=== PATIENT | male | born 1980 | race Caucasian/White ===

== ENCOUNTER 2016-03-08 10:52 | Emergency (ER) | payer OTHER ==
[~2016-03-08] VITALS: Ht 165.1 cm; Wt 104.3 kg
[~2016-03-08 10:52] MED LIST: ABILIFY5 M1 PO; AMITRIPTYLINE100 M2 PO; AMITRIPTYLINE50 MG PO; AMOXICILLIN500 M3 PO; ATORVASTATIN CA10 MG PO; BACTRIM DS TAB1 EACH PO; BENTYL10 M1 PO; CARAFATE1 GM/10 ML PO; CLEOCIN HCL300 MG PO; CLONAZEPAM0.5 M2 PO; CLONAZEPAM1 M2 PO; CYMBALTA30 M1 PO; HCTZ/LISINOPRIL1 TA1 PO; HYDROCHLOROTH12.5 M2 PO; HYDROCODONE BI120 M1 PO; LOVENOX 4040 MG/0.4 SC; NATURAL IRON65 MG PO; ONE DAILY MULT1 EAC2 PO; OXYCODONE5 M1 PO; PERCOCET 5-3251 EACH PO; PREDNISOLO15 MG/5 M1 OD; PREDNISOLO15 MG/5 M1 OP; PROAIR HFA8.5 GM INH; PROTONIX40 M3 PO; VITAMIN D31000 UNI2 PO
[2016-03-08 11:01] VITALS: BP 136/84
[2016-03-08] MEDS ORDERED: BUPROPION XL300 M1 PO (11:38)
[2016-03-08] MEDS ORDERED: DEPLIN-ALGAL O1 EAC1 PO (11:39)
--- NOTE | 2016-03-08 11:46 | ED GENERAL ADULT ---
History of Present Illness General Chief Complaint: Fever Stated Complaint: FEVER, CHILLS SINCE THIS AM Source: patient Exam Limitations: no limitations Vital Signs & Intake/Output Vital Signs & Intake/Output Vital Signs Date Time Temp Pulse Resp B/P Pulse O2 O2 Flow FiO2 Ox Delivery Rate 03/08 1326 98.7 03/08 1101 97.8 99 20 136/84 98 Room Air Allergies Coded Allergies: NO KNOWN ALLERGIES (08/19/14) Reconcile Medications Albuterol Sulfate (Proair Hfa) 0.09 MG/Actuation CAREY 2 PUFF INH PRN ASTHMA ( Reported) AMITRIPTYLINE HCL (Amitriptyline HCl) 100 MG TAB 1 TAB PO QPM SLEEP/DEPRESSION (Reported) Amoxicillin 500 MG TABLET 1 TAB PO TID abscess Aripiprazole (Abilify) 5 MG TABLET 1 TAB PO DAILY SLEEP (Reported) Bupropion HCl (Bupropion XL) 300 MG TAB.ER.24H 1 TAB PO QAM DEPRESSION ( Reported) Cholecalciferol (Vitamin D3) 1,000 UNIT TABLET 1 TAB PO DAILY SUPPLEMENT ( Reported) Clonazepam 1 MG TABLET 1 TAB PO BID ANXIETY (Reported) Clonazepam 0.5 MG TABLET 1 TAB PO DAILY ANXIETY (Reported) Dicyclomine Hydrochloride (Bentyl 10 MG Capsule) 10 MG CAPSULE 1 CAP PO TID IBS (Reported) Duloxetine Hydrochloride (Cymbalta) 30 MG CAPSULE.DR 1 CAP PO DAILY DEPRESSION (Reported) FERROUS SULFATE (IRON) (Unknown Strength) TAB (Unknown Dose) PO DAILY SUPPLEMENT (Reported) Hydrochlorothiazide (Hydrodiuril 12.5 MG Tab) 12.5 MG HTAB 1 CAP PO DAILY DIURETIC (Reported) L-Methylfolate (Deplin-Algal Oil 15 MG Capsule) 15 MG-90.314 MG CAPSULE 1 CAP PO DAILY UNKNOWN (Reported) Multivitamin (One Daily Multivitamin) 1 TAB TAB 1 TAB PO DAILY SUPPLEMENT ( Reported) Oxycodone HCl/Acetaminophen (Percocet 5-325 MG Tablet) 5 MG-325 MG TABLET 1 TAB PO TID PRN PAIN Pantoprazole Sodium (Protonix) 40 MG TABLET.DR 1 TAB PO DAILY ACID REFLUX ( Reported) Prednisolone 15 MG/5 ML SOLUTION 1 DROP OD DAILY CORNEA TRANSPLANT (Reported) Sulfamethoxazole/Trimethoprim (Bactrim Ds Tablet) 800 MG-160 MG TABLET 1 TAB PO BID abscess Triage Note: PT TO ED C/O "MRSA INFECTION" TO RIGHT BUTTOCKS. WAS TOLD TO COME BACK TO ED FOR FEVER AND CHILLS. PT STATES HE HAD A FEVER AT HOME OF 101.3, TEMP IN TRIAGE 97.6. PT SEEN IN ED X 2 RECENTLY FOR MRSA INFECTION. Triage Nurses Notes Reviewed? yes Onset: Gradual Duration: day(s): (1) Timing: no prior history Injury Environment: home Severity: moderate Severity Numbers: 6 No Modifying Factors: none HPI: Patient is a 35-year-old male presenting to the emergency department with chief complaint of aches, pains, fevers up to 11.5 that started this morning. Patient reports that he is on 2 different antibiotics over the past 4 days for an abscess that was drained on his right outer leg. He reports that the pain is still present in the right lateral leg. Has an appointment at the end of the month with a surgeon. Denies any chest pain palpitations or shortness of breath. No nausea or vomiting. Positive frontal headache. Denies taking anything help with his fevers. (CAN RANDOLPH) Past History Travel History Traveled to [place] past 21 day No Medical History Any Pertinent Medical History? 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 No (CAN RANDOLPH) Review of Systems Review of Systems Constitutional: Reports: chills, fever, malaise. Comments Review of systems: See HPI, All other systems negative. Constitutional, no weight loss HEENT: No visual changes no sore throat no congestion Cardiovascular: No chest pain ,palpitation , orthopnea or ankle swelling Skin, no jaundice Respiratory: No dyspnea cough sputum or hemoptysis GI: No nausea no vomiting : No dysuria No hematuria Muscle skeletal: no back pain, no neck pain, Neurologic: No numbness no confusion Psych: No stress anxiety or depression,. Heme/endocrine: No bruising no bleeding no polyuria or polydipsia Immunology: No splenectomy or history of AIDS (CAN RANDOLPH) Physical Exam Physical Exam General Appearance: well developed/nourished, no apparent distress, alert, awake , comfortable Comments: Well-developed well-nourished person in no acute distress HEENT: Pupils equally round and reactive to light and accommodation. Nose is atraumatic. External auditory canal and Tympanic membranes clear. Pharynx normal. No swelling or edema. Neck: Supple, no lymphadenopathy, normal range of motion without pain or tenderness Back: Nontender, no CVA tenderness. Full range of motion Cardiovascular: Regular rate and rhythms no murmurs rubs or gallops, normal JVP Respiratory: Chest nontender. No respiratory distress.breath sounds clear to auscultation bilaterally Abdomen: Soft nontender, no rebound or guarding. Bowel sounds intact in all 4 quadrants. Extremity: No edema Neuro: Alert oriented x3 Skin: Healing abscess over the right lateral gluteus carmelo, firm, no fluctuance. Scab present in the central area. No surrounding erythema. Psych: Mood and affect is normal, memory and judgment is normal. Core Measures ACS in differential dx? No CVA/TIA Diagnosis: No Severe Sepsis Present: No Septic Shock Present: No (CAN RANDOLPH) Progress Differential Diagnoses I considered the following diagnoses in my evaluation of the patient: Failed outpatient treatment, sepsis, viral syndrome, abscess Plan of Care: Orders Procedure Date/time Status RAPID VIRAL INFLUENZA A 03/08 1151 Complete COMPREHENSIVE METABOLIC PANEL 03/08 1145 Complete CBC WITHOUT DIFFERENTIAL 03/08 1145 Complete Laboratory Tests 03/08/16 1222: Anion Gap 12, Estimated GFR > 60, BUN/Creatinine Ratio 10.0, Glucose 98, Calcium 9.1, Total Bilirubin 0.8, AST 24, ALT 28, Alkaline Phosphatase 108, Total Protein 7.7, Albumin 4.4, Globulin 3.3, Albumin/Globulin Ratio 1.3, CBC w Diff NO MAN DIFF REQ, RBC 4.68 L, MCV 85.8, MCH 29.7, RDW 13.4, MPV 7.2 L, Gran % 91.8 H, Lymphocytes % 4.1 L, Monocytes % 3.5, Eosinophils % 0.6, Basophils % 0 L, Absolute Granulocytes 6.2, Absolute Lymphocytes 0.3 L, Absolute Monocytes 0.2, Absolute Eosinophils 0, Absolute Basophils 0, PUBS MCHC 34.6 Initial ED EKG: none Comments: Patient given oxycodone for pain in the emergency department. Patient is afebrile here. No elevation in white blood cell count. Abscess appears to be healing well. This was negative. Likely either viral process on top of abscess. He was given another surgeon follow-up with as his appointment isn't for 3 weeks. (CAN RANDOLPH) Departure Departure Time of Disposition: 1302 Disposition: HOME OR SELF CARE Condition: Stable Clinical Impression Primary Impression: Abscess Referrals: EB LAMB MD (PCP/Family) ALISSA RODRIGUEZ MD Referred to [facility] as new patient No Additional Instructions: Follow-up with your primary care physician as well as surgeon they have scheduled. Return for worsening symptoms or concerns. Continue antibiotics. Continue pain medication as prescribed. Apply a warm compress to affected area. Departure Forms: Customer Survey General Discharge Information (CAN RANDOLPH) PA/MENTAL HEALTH ASSOCIATE Co-Sign Statement Statement: ED Attending supervision documentation- [] I saw and evaluated the patient. I have also reviewed all the pertinent lab results and diagnostic results. I agree with the findings and the plan of care as documented in the PA's/MENTAL HEALTH ASSOCIATE's documentation. [X] I have reviewed the ED Record and agree with the PA's/MENTAL HEALTH ASSOCIATE's documentation. [] Additions or exceptions (if any) to the PAs/MENTAL HEALTH ASSOCIATE's note and plan are summarized below: [] (LEBRON GUY DO) Critical Care Note Critical Care Note Critical Care Time: non-applicable (CAN RANDOLPH)
[2016-03-08 12:30] LABS: ABSOLUTE BASOPHIL COUNT 0 /CUMM (0.0-0.2); ABSOLUTE EOSINOPHIL COUNT 0 /CUMM (0.0-0.7); ABSOLUTE GRANULOCYTE CT 6.2 /CUMM (1.4-6.5); ABSOLUTE LYMPH COUNT 0.3 /CUMM (1.2-3.4); ABSOLUTE MONOCYTE COUNT 0.2 /CUMM (0.10-0.60); BASOPHIL % 0 % (0.0-2.0); EOSINOPHIL % 0.6 % (0-5); GRANULOCYTE % 91.8 % (42.2-75.2); HEMATOCRIT 40.1 % (42-52); MEAN CORPUSCULAR HGB 29.7 PG (27.0-31.0); MEAN CORPUSCULAR HGB CONC 34.6 G/DL (33.0-37.0); MEAN CORPUSCULAR VOLUME 85.8 FL (80.0-94.0); MEAN PLATELET VOLUME 7.2 FL (7.4-10.4); PLATELET COUNT 245 /CUMM (130-400); RBC DISTRIBUTION WIDTH 13.4 % (11.5-14.5); RED BLOOD CELL CT 4.68 /CUMM (4.70-6.10); WHITE BLOOD CELL COUNT 6.7 /CUMM (4.8-10.8)
== END 2016-03-08 13:27 ==
LOC: ERH 10:52
PROVIDERS: Physician Assistant
DX: L02.31 Cutaneous abscess of buttock (principal)
CPT/HCPCS: 87804; 87804-59

== ENCOUNTER 2016-04-02 09:14 | Emergency (ER) | payer OTHER ==
[~2016-04-02] VITALS: Ht 165.1 cm; Wt 102.1 kg
[~2016-04-02 09:14] MED LIST changes: +BUPROPION XL300 M1 PO; +DEPLIN-ALGAL O1 EAC1 PO
[2016-04-02] MEDS ORDERED: VICODIN 5-3001 EACH PO (11:14)
[2016-04-02] MEDS ORDERED: AMOXICILLIN500 M3 PO (11:14)
[2016-04-02] MEDS ORDERED: BACTRIM DS TAB1 EACH PO (11:14)
--- NOTE | 2016-04-02 11:14 | ED SKIN/ALLERGY COMPLAINT ---
History of Present Illness General Chief Complaint: Skin Rash/ Abcess Stated Complaint: ABCESS LANCED YESTERDAY AT WALK IN/PAIN Source: patient Exam Limitations: no limitations Vital Signs & Intake/Output Vital Signs & Intake/Output Vital Signs Date Time Temp Pulse Resp B/P Pulse O2 O2 Flow FiO2 Ox Delivery Rate 04/02 0943 97.6 76 20 135/83 96 Room Air Allergies Coded Allergies: NO KNOWN ALLERGIES (04/02/16) Reconcile Medications Albuterol Sulfate (Proair Hfa) 0.09 MG/Actuation CAREY 2 PUFF INH PRN ASTHMA ( Reported) AMITRIPTYLINE HCL (Amitriptyline HCl) 100 MG TAB 1 TAB PO QPM SLEEP/DEPRESSION (Reported) Amoxicillin 500 MG TABLET 1 TAB PO TID abscess Aripiprazole (Abilify) 5 MG TABLET 1 TAB PO DAILY SLEEP (Reported) Bupropion HCl (Bupropion XL) 300 MG TAB.ER.24H 1 TAB PO QAM DEPRESSION ( Reported) Cholecalciferol (Vitamin D3) 1,000 UNIT TABLET 1 TAB PO DAILY SUPPLEMENT ( Reported) Clonazepam 1 MG TABLET 1 TAB PO BID ANXIETY (Reported) Clonazepam 0.5 MG TABLET 1 TAB PO DAILY ANXIETY (Reported) Dicyclomine Hydrochloride (Bentyl 10 MG Capsule) 10 MG CAPSULE 1 CAP PO TID IBS (Reported) Duloxetine Hydrochloride (Cymbalta) 30 MG CAPSULE.DR 1 CAP PO DAILY DEPRESSION (Reported) FERROUS SULFATE (IRON) (Unknown Strength) TAB (Unknown Dose) PO DAILY SUPPLEMENT (Reported) Hydrochlorothiazide (Hydrodiuril 12.5 MG Tab) 12.5 MG HTAB 1 CAP PO DAILY DIURETIC (Reported) Hydrocodone/Acetaminophen (Vicodin 5-300 MG Tablet) 5 MG-300 MG TABLET 1 TAB PO Q6HR PRN pain L-Methylfolate (Deplin-Algal Oil 15 MG Capsule) 15 MG-90.314 MG CAPSULE 1 CAP PO DAILY UNKNOWN (Reported) Multivitamin (One Daily Multivitamin) 1 TAB TAB 1 TAB PO DAILY SUPPLEMENT ( Reported) Oxycodone HCl/Acetaminophen (Percocet 5-325 MG Tablet) 5 MG-325 MG TABLET 1 TAB PO TID PRN PAIN Pantoprazole Sodium (Protonix) 40 MG TABLET.DR 1 TAB PO DAILY ACID REFLUX ( Reported) Prednisolone 15 MG/5 ML SOLUTION 1 DROP OD DAILY CORNEA TRANSPLANT (Reported) Sulfamethoxazole/Trimethoprim (Bactrim Ds Tablet) 800 MG-160 MG TABLET 1 TAB PO BID abscess Triage Note: TRIAGE: PT TO ER C/C HAD ABSCESS TO BUTTOCKS LANCED YESTERDAY AT WALK IN CLINIC BUT HAS HAD CONSTANT PAIN SINCE WHICH IS WORSENING SINCE ONSET. STATES THEY DIDN'T GIVE HIM ANY PAIN MEDICATIONS OR ANTIBIOTICS AND HE HAS HX OF MRSA IN PREVIOUS ABSCCESS TO THE SAME AREA. Triage Nurses Notes Reviewed? yes Onset: Gradual Duration: week(s): (1) Timing: recent history Severity: moderate Severity Numbers: 8 Location: extremities (right upper leg) Possible Factors: no cause identified HPI: Patient is a 35-year-old male presenting to the emergency department with chief complaint of abscess to right hip area. He reports that he had the abscess drained at a walk-in clinic yesterday coming in today because they did not put him on antibiotics and did not give him anything for pain. Pain is currently moderate 8 out of 10 throbbing and intermittently sharp and stabbing. Denies any fevers or chills. Denies any excessive drainage from the site. He did not want to go back to the walk-in today because he felt like he was treated poorly there. Remote history of similar symptoms. Denies any nausea vomiting fevers chills chest pain or shortness of breath. Past History Travel History Traveled to [place] past 21 day No Medical History Any Pertinent Medical History? 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 No Review of Systems Review of Systems Constitutional: Reports: no symptoms. Comments Review of systems: See HPI, All other systems negative. Constitutional, no chills fever or weight loss HEENT: No visual changes no sore throat no congestion Cardiovascular: No chest pain ,palpitation Skin, no jaundice Respiratory: No dyspnea cough sputum or hemoptysis GI: No nausea no vomiting : No dysuria No hematuria Muscle skeletal: no back pain, no neck pain, Neurologic: No numbness no confusion, no headache Psych: No stress anxiety Immunology: No splenectomy or history of AIDS Physical Exam Physical Exam General Appearance: well developed/nourished, no apparent distress, alert, awake , comfortable Comments: Well-developed well-nourished no apparent distress. HEENT: Atraumatic, extraocular motion intact Neck: Supple, no lymphadenopathy Back: Nontender Respiratory: No respiratory distress Extremities: No edema, full range of motion Skin: There appears to be lanced abscess on the right upper outer thigh, minor surrounding erythema approximately 4 cm, tender to palpation, nonfluctuant, with in place. There is serosanguineous drainage on the bandage. Area is flat. Mildly warm to palpation. Neuro: Alert and oriented x3 Psych: Mood affect normal, normal memory normal judgment. Progress Differential Diagnosis: abscess/cellulitis, cellulitis, contact dermatitis, abrasion Plan of Care: Current Medications Sig/Vignesh Start time Last Medication Dose Stop Time Status Admin Ibuprofen 800 MG ONCE ONE 04/02 1115 UNVr (Motrin) 04/02 1116 Comments: 04/02/2016 11:18:45 AM on arrival patient no acute distress, he does have drained abscess on the right upper outer thigh that is tender with surrounding erythema. Consistent with cellulitis. Patient will be treated with antibiotics, pain medication. Given dose of ibuprofen. He will return in 2 days for dressing change. New dressing was placed today. Departure Departure Time of Disposition: 1111 Disposition: HOME OR SELF CARE Condition: Stable Clinical Impression Primary Impression: Abscess Referrals: EB LAMB MD (PCP/Family) Additional Instructions: Follow-up in 2 days for a wound check and packing change. Take antibiotics as prescribed. Take Vicodin as prescribed for severe pain. Take [id number] ibuprofen as directed for inflammation and moderate pain. Departure Forms: Customer Survey General Discharge Information Prescriptions: Current Visit Scripts Hydrocodone/Acetaminophen (Vicodin 5-300 MG Tablet) 1 TAB PO Q6HR PRN pain #10 TAB Sulfamethoxazole/Trimethoprim (Bactrim Ds Tablet) 1 TAB PO BID #14 TAB Amoxicillin 1 TAB PO TID #21 TAB Procedures Additional Procedures Additional Procedures: dressing change Progress: All dressing removed, new sterile nonstick dressing placed. Patient tolerated procedure well.
[2016-04-02 11:38] VITALS: BP 132/78
== END 2016-04-02 11:39 ==
LOC: ERH 09:14
DX: L02.415 Cutaneous abscess of right lower limb (principal)

== ENCOUNTER 2016-04-04 08:02 | Emergency (ER) | payer OTHER ==
[~2016-04-04] VITALS: Ht 165.1 cm; Wt 102.1 kg
[~2016-04-04 08:02] MED LIST changes: +VICODIN 5-3001 EACH PO
[2016-04-04 08:58] VITALS: BP 118/78
[2016-04-04] MEDS ORDERED: PERCOCET 5-3251 EACH PO (10:55)
--- NOTE | 2016-04-04 10:55 | ED ANIMAL BITE/WOUND CHECK ---
History of Present Illness General Chief Complaint: Suture Removal/Wound Recheck Stated Complaint: ABCESS/WOUND RECHECK Source: patient, old records Exam Limitations: no limitations Vital Signs & Intake/Output Vital Signs & Intake/Output Vital Signs Date Time Temp Pulse Resp B/P Pulse O2 O2 Flow FiO2 Ox Delivery Rate 04/04 0858 96.8 66 20 118/78 99 Room Air Allergies Coded Allergies: NO KNOWN ALLERGIES (04/02/16) Reconcile Medications Albuterol Sulfate (Proair Hfa) 0.09 MG/Actuation CAREY 2 PUFF INH PRN ASTHMA ( Reported) AMITRIPTYLINE HCL (Amitriptyline HCl) 100 MG TAB 1 TAB PO QPM SLEEP/DEPRESSION (Reported) Amoxicillin 500 MG TABLET 1 TAB PO TID abscess Aripiprazole (Abilify) 5 MG TABLET 1 TAB PO DAILY SLEEP (Reported) Bupropion HCl (Bupropion XL) 300 MG TAB.ER.24H 1 TAB PO QAM DEPRESSION ( Reported) Cholecalciferol (Vitamin D3) 1,000 UNIT TABLET 1 TAB PO DAILY SUPPLEMENT ( Reported) Clonazepam 1 MG TABLET 1 TAB PO BID ANXIETY (Reported) Clonazepam 0.5 MG TABLET 1 TAB PO DAILY ANXIETY (Reported) Dicyclomine Hydrochloride (Bentyl 10 MG Capsule) 10 MG CAPSULE 1 CAP PO TID IBS (Reported) Duloxetine Hydrochloride (Cymbalta) 30 MG CAPSULE.DR 1 CAP PO DAILY DEPRESSION (Reported) FERROUS SULFATE (IRON) (Unknown Strength) TAB (Unknown Dose) PO DAILY SUPPLEMENT (Reported) Hydrochlorothiazide (Hydrodiuril 12.5 MG Tab) 12.5 MG HTAB 1 CAP PO DAILY DIURETIC (Reported) Hydrocodone/Acetaminophen (Vicodin 5-300 MG Tablet) 5 MG-300 MG TABLET 1 TAB PO Q6HR PRN pain L-Methylfolate (Deplin-Algal Oil 15 MG Capsule) 15 MG-90.314 MG CAPSULE 1 CAP PO DAILY UNKNOWN (Reported) Multivitamin (One Daily Multivitamin) 1 TAB TAB 1 TAB PO DAILY SUPPLEMENT ( Reported) Oxycodone HCl/Acetaminophen (Percocet 5-325 MG Tablet) 5 MG-325 MG TABLET 1 TAB PO TID PRN PAIN Oxycodone HCl/Acetaminophen (Percocet 5-325 MG Tablet) 5 MG-325 MG TABLET 1 TAB PO TID PRN pain Pantoprazole Sodium (Protonix) 40 MG TABLET.DR 1 TAB PO DAILY ACID REFLUX ( Reported) Prednisolone 15 MG/5 ML SOLUTION 1 DROP OD DAILY CORNEA TRANSPLANT (Reported) Sulfamethoxazole/Trimethoprim (Bactrim Ds Tablet) 800 MG-160 MG TABLET 1 TAB PO BID abscess Triage Note: HERE FOR RECHECK TO [facility]. SEEN HERE ON 04/02. STATES PAIN IS WORSE. Triage Nurses Notes Reviewed? yes HPI: Seen a few days ago for abscess to right hip and cellulitis was placed on antibiotics after an I&D as outpatient. History of MRSA. He is taking antibiotics is feeling better he still complains of pain. Pain is moderate to severe worse with palpation and motion. He denies any fever or flulike illness. I reviewed his previous records, he has history of multiple abscesses in I and D's and MRSA. He has finished his pain medication prescription except for one or 2 doses and states that the Vicodin did not help him he prefers Percocet (AYAKA WADE) Past History Travel History Traveled to [place] past 21 day No Medical History Any Pertinent Medical History? 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 No (AYAKA WADE) Review of Systems Review of Systems Constitutional: Reports: see HPI. EENTM: Reports: no symptoms. Respiratory: Reports: no symptoms. Cardiovascular: Reports: no symptoms. GI: Reports: no symptoms. Genitourinary: Reports: no symptoms. Musculoskeletal: Reports: no symptoms. Skin: Reports: see HPI. Neurological/Psychological: Reports: no symptoms. Hematologic/Endocrine: Reports: no symptoms. Immunologic/Allergic: Reports: no symptoms. All Other Systems: Reviewed and Negative (AYAKA WADE) Physical Exam Physical Exam General Appearance: well developed/nourished Comments: Well-developed well-nourished no apparent distress. HEENT: Atraumatic, extraocular motion intact Neck: Supple, no lymphadenopathy Back: Nontender Respiratory: No respiratory distress Extremities: No edema, full range of motion Neuro: Alert and oriented x3 Psych: Mood affect normal, normal memory normal judgment. Skin: Warm and dry, no rash on exposed skin Right lateral hip with I&D site noted. Dressing removed, drain was in place, this was pulled its entirety. Small amount of bloody drainage was expressed from the wound. He has minimal swelling and no erythema and minimal induration. A sterile dressing was then applied. (AYAKA WADE) Progress Differential Diagnosis: abscess, cellulitis, joint infection, tenosysnovitis Plan of Care: Continue with antibiotics and warm compresses, he is requesting Percocet for pain. He'll return with any concerns but as of this time he does not need follow-up for this (AYAKA WADE) Departure Departure Disposition: HOME OR SELF CARE Condition: Stable Clinical Impression Primary Impression: Encounter for recheck of abscess following incision and drainage Referrals: EB LAMB MD (PCP/Family) Additional Instructions: Continue warm compresses. Take medication for pain as needed. Continue the antibiotics Return with worsening redness swelling pain fever or flulike illness Departure Forms: Customer Survey General Discharge Information Prescriptions: Current Visit Scripts Oxycodone HCl/Acetaminophen (Percocet 5-325 MG Tablet) 1 TAB PO TID PRN pain #10 TAB (AYAKA WADE) PA/DEPARTMENT SUPERVISOR Co-Sign Statement Statement: ED Attending supervision documentation- [] I saw and evaluated the patient. I have also reviewed all the pertinent lab results and diagnostic results. I agree with the findings and the plan of care as documented in the PA's/DEPARTMENT SUPERVISOR's documentation. x I have reviewed the ED Record and agree with the PA's/DEPARTMENT SUPERVISOR's documentation. [] Additions or exceptions (if any) to the PAs/DEPARTMENT SUPERVISOR's note and plan are summarized below: [] (LEANDRO DUMONT,BRIELLE)
== END 2016-04-04 11:11 ==
LOC: ERH 08:02
DX: L02.415 Cutaneous abscess of right lower limb (principal)

== ENCOUNTER 2016-04-16 11:26 | Emergency (ER) | payer OTHER ==
[~2016-04-16] VITALS: Ht 165.1 cm; Wt 100.7 kg
--- NOTE | 2016-04-16 13:04 | ED GI/GU/ABDOMINAL COMPLAINT ---
History of Present Illness General Chief Complaint: Nausea, Vomiting, Diarrhea Stated Complaint: DIZZINESS, AND NVD Source: patient Exam Limitations: no limitations Vital Signs & Intake/Output Vital Signs & Intake/Output Vital Signs Date Time Temp Pulse Resp B/P Pulse O2 O2 Flow FiO2 Ox Delivery Rate 04/16 1159 98.0 81 18 132/81 99 Room Air Allergies Coded Allergies: NO KNOWN ALLERGIES (04/02/16) Reconcile Medications Albuterol Sulfate (Proair Hfa) 0.09 MG/Actuation CAREY 2 PUFF INH PRN ASTHMA ( Reported) AMITRIPTYLINE HCL (Amitriptyline HCl) 100 MG TAB 1 TAB PO QPM SLEEP/DEPRESSION (Reported) Amoxicillin 500 MG TABLET 1 TAB PO TID abscess Aripiprazole (Abilify) 5 MG TABLET 1 TAB PO DAILY SLEEP (Reported) Bupropion HCl (Bupropion XL) 300 MG TAB.ER.24H 1 TAB PO QAM DEPRESSION ( Reported) Cholecalciferol (Vitamin D3) 1,000 UNIT TABLET 1 TAB PO DAILY SUPPLEMENT ( Reported) Clonazepam 1 MG TABLET 1 TAB PO BID ANXIETY (Reported) Clonazepam 0.5 MG TABLET 1 TAB PO DAILY ANXIETY (Reported) Dicyclomine Hydrochloride (Bentyl 10 MG Capsule) 10 MG CAPSULE 1 CAP PO TID IBS (Reported) Duloxetine Hydrochloride (Cymbalta) 30 MG CAPSULE.DR 1 CAP PO DAILY DEPRESSION (Reported) FERROUS SULFATE (IRON) (Unknown Strength) TAB (Unknown Dose) PO DAILY SUPPLEMENT (Reported) Hydrochlorothiazide (Hydrodiuril 12.5 MG Tab) 12.5 MG HTAB 1 CAP PO DAILY DIURETIC (Reported) Hydrocodone/Acetaminophen (Vicodin 5-300 MG Tablet) 5 MG-300 MG TABLET 1 TAB PO Q6HR PRN pain L-Methylfolate (Deplin-Algal Oil 15 MG Capsule) 15 MG-90.314 MG CAPSULE 1 CAP PO DAILY UNKNOWN (Reported) Multivitamin (One Daily Multivitamin) 1 TAB TAB 1 TAB PO DAILY SUPPLEMENT ( Reported) Oxycodone HCl/Acetaminophen (Percocet 5-325 MG Tablet) 5 MG-325 MG TABLET 1 TAB PO TID PRN PAIN Oxycodone HCl/Acetaminophen (Percocet 5-325 MG Tablet) 5 MG-325 MG TABLET 1 TAB PO TID PRN pain Oxycodone HCl/Acetaminophen (Percocet 5-325 MG Tablet) 5 MG-325 MG TABLET 1 TAB PO BID PRN PAIN Pantoprazole Sodium (Protonix) 40 MG TABLET.DR 1 TAB PO DAILY ACID REFLUX ( Reported) Prednisolone 15 MG/5 ML SOLUTION 1 DROP OD DAILY CORNEA TRANSPLANT (Reported) Sulfamethoxazole/Trimethoprim (Bactrim Ds Tablet) 800 MG-160 MG TABLET 1 TAB PO BID abscess Triage Note: C/O MID ABDOMINAL PAIN X 2 DAYS, WITH DIARRHEA, DIZZINESS. NO VOMITING. Triage Nurses Notes Reviewed? yes Onset: Gradual Duration: constant Timing: recent history Severity Numbers: 8 Location: generalized abdomen Radiation: no radiation Activities at Onset: none HPI: Patient is a 35-year-old male with a past medical history of IBS and gastric bypass surgery performed by Dr. Nava who presents emergency room stating that for the last 2 days patient has had multiple episodes of nonbloody loose watery stool diarrhea production and generalized severe abdominal cramping with pain. Patient is able tolerate by mouth. Denies any blood or melena noted from bowel production. Denies any fever chills. Denies any hematuria Patient states that he was evaluated 3 days ago by his informatics nurse specialist at [facility] however he did not have symptoms at that time. Denies any recent antibiotic use. (VERNON DICK) Past History Travel History Traveled to [place] past 21 day No Medical History Any Pertinent Medical History? see below for history Neurological: NONE EENT: CARATICONAS EYE DISEASE Cardiovascular: hyperlipidemia Respiratory: asthma, SLEEP APNEA Gastrointestinal: GERD, irritable bowel syndrome Hepatic: NONE Renal: NONE Musculoskeletal: MRSA IN WOUND Psychiatric: anxiety, depression Endocrine: NONE Blood Disorders: NONE Cancer(s): NONE DIVISION CHAIR/Reproductive: NONE History of MRSA: No History of VRE: No History of CDIFF: No Surgical History Surgical History: BENIGN TUMOR REMOVAL BUTTOCKS, CYST REMOVAL COCCYX AND SACRAL REGION Psychosocial History Who do you live with Family What is your primary language Central [place] Tobacco Use: Never used ETOH Use: denies use Family History Hx Contributory? No (VERNON DICK) Review of Systems Review of Systems Constitutional: Reports: no symptoms. EENTM: Reports: no symptoms. Respiratory: Reports: no symptoms. Cardiovascular: Reports: no symptoms. GI: Reports: see HPI, abdominal pain. Genitourinary: Reports: no symptoms. Musculoskeletal: Reports: no symptoms. Skin: Reports: no symptoms. Neurological/Psychological: Reports: no symptoms. Hematologic/Endocrine: Reports: no symptoms. Immunologic/Allergic: Reports: no symptoms. All Other Systems: Reviewed and Negative (VERNON DICK) Physical Exam Physical Exam General Appearance: no apparent distress Gastrointestinal: normal bowel sounds, soft, GENERALIZED ABDOMINAL POINT TENDERNESS NOTED Comments: Well-developed well-nourished person in no acute distress HEENT: Normal EENT exam, extraocular motion intact, no nystagmus. Pupils equally round and reactive to light and accommodation. Nose is atraumatic. External auditory canal and Tympanic membranes clear. Pharynx normal. No swelling or edema. Neck: Supple, no lymphadenopathy, normal range of motion without pain or tenderness Back: Nontender, no CVA tenderness Cardiovascular: Regular rate and rhythms no murmurs rubs or gallops, normal JVP Respiratory: Chest nontender. No respiratory distress.breath sounds clear to auscultation bilaterally Extremity: No edema, no calf tenderness to palpation, normal and equal pulses. Neuro: Alert oriented x3, motor sensory normal, Skin: No appreciable rash on exposed skin, skin is warm and dry. Psych: Mood and affect is normal, memory and judgment is normal. Core Measures ACS in differential dx? No Severe Sepsis Present: No Septic Shock Present: No (VERNON DICK) Progress Differential Diagnosis: AAA, AMI, appendicitis, biliary colic, bowel obstruction , colon cancer, cholecystitis, diverticulitis, epididymitis, esophageal varices, gastritis, hepatitis, hernia, hemorrhoids, ischemic bowel, inflamm bowel dis, Bettie-Zaida tear, orchitis, pancreatitis, prostatitis, peptic ulcer, PUD/GERD, perforated viscous, pyelonephritis, SBO, STD, testicular torsion, ureterolithiasis, urinary retention, urethritis, UTI/pyelo Plan of Care: Orders Procedure Date/time Status LIPASE 04/16 1304 Complete COMPREHENSIVE METABOLIC PANEL 04/16 1304 Complete CBC WITHOUT DIFFERENTIAL 04/16 1304 Complete AMYLASE 04/16 1304 Complete Laboratory Tests 04/16/16 1300: Anion Gap 12, Estimated GFR > 60, BUN/Creatinine Ratio 13.3, Glucose 76, Calcium 9.7, Total Bilirubin 0.8, AST 28, ALT 41, Alkaline Phosphatase 116, Total Protein 8.0, Albumin 4.6, Globulin 3.4, Albumin/Globulin Ratio 1.4, Amylase 45, Lipase 107, CBC w Diff NO MAN DIFF REQ, RBC 5.18, MCV 87.7, MCH 29.8, RDW 13.8, MPV 8.2, Gran % 76.1 H, Lymphocytes % 14.7 L, Monocytes % 7.1, Eosinophils % 1.9, Basophils % 0.2, Absolute Granulocytes 7.2 H, Absolute Lymphocytes 1.4, Absolute Monocytes 0.7 H, Absolute Eosinophils 0.2, Absolute Basophils 0, PUBS MCHC 34.0 04/16/2016 2:32:41 PM reevaluation the patient patient had significant improvement of pain Patient had CT scan findings for concerns of colitis in which due to past medical history history of present illness and exam findings and blood work I suspect patient have exacerbation of IBS and colitis. Patient was able tolerate by mouth on discharge. Patient was strongly advised to follow up with his established informatics nurse specialist from [facility]. On discharge patient looks well no apparent chest will comply with discharge instructions and had no questions. (ABDULLAHI CARREON,VERNON) Diagnostic Imaging: Viewed by Me: CT Scan. Radiology Impression: SEE COMMENTS Initial ED EKG: none Comments: PATIENT: VERNON ALICIA PRESENT AGE: 35 PATIENT ACCOUNT NO: [id number] : 78 LOCATION: [facility] ORDERING PHYSICIAN: VERNON CARREON SERVICE DATE: 04/16/16 EXAM TYPE: CAT - CT ABD & PELVIS W IV CONTRAST EXAMINATION: CT ABDOMEN AND PELVIS WITH CONTRAST CLINICAL INFORMATION: Abdominal pain, diarrhea, history of remote gastric bypass surgery COMPARISON: 01/25/2015 TECHNIQUE: Multidetector volumetric imaging was performed of the abdomen and pelvis before and after the IV administration of 94 mL of Optiray 320 intravenous contrast. Sagittal and coronal reformatted images were obtained on the technologist's workstation. DLP: 939.00 mGy-cm FINDINGS: LUNG BASES: The visualized lung bases demonstrate trace atelectasis. LIVER, GALLBLADDER, AND BILIARY TREE: The liver is normal in size, shape, and attenuation. There is a stable subcentimeter hypoattenuating lesion in the dome of the right hepatic lobe, too small to characterize though statistically likely a small cyst. No biliary ductal dilatation is present. The gallbladder is unremarkable with no evidence of radiopaque gallstones, gallbladder wall thickening, or obvious pericholecystic inflammatory changes. PANCREAS: Unremarkable. SPLEEN: Mildly enlarged, measuring approximately 15 cm in craniocaudal dimension. ADRENAL GLANDS: Unremarkable. KIDNEYS AND URETERS: The kidneys are normal in size, shape, and attenuation. No hydronephrosis, hydroureter, or calculi seen. No perinephric stranding. BLADDER: Unremarkable. GASTROINTESTINAL TRACT: There are postoperative changes from gastric bypass surgery. No evidence of bowel obstruction. There is mild mural prominence of the distal sigmoid colon and rectum, without significant surrounding inflammation. The appendix is unremarkable. ABDOMINAL WALL: No significant hernia is appreciated. LYMPH NODES: Scattered mesenteric and retroperitoneal subcentimeter lymph nodes are present, without significant enlargement by size criteria. VASCULAR: Unremarkable. PELVIC VISCERA: Unremarkable. OSSEOUS STRUCTURES: Degenerative changes are noted in the visualized lower thoracic spine. IMPRESSION: 1. Mild mural prominence of the distal sigmoid colon and rectum. Though no significant surrounding inflammation is present, a mild colitis/proctitis is possible in the proper clinical setting. 2. Mild splenomegaly. 3. Status post gastric bypass surgery. (VERNON DICK) Departure Departure Disposition: HOME OR SELF CARE Condition: Stable Clinical Impression Primary Impression: Abdominal pain Secondary Impressions: Colitis, IBS (irritable bowel syndrome) Referrals: EB LAMB MD (PCP/Family) Additional Instructions: As discussed continue home medications as directed. Begin a 24-hour clear liquid diet to rest your bowels. Begin the prescription of Percocet for breakthrough pain relief. Prescription is waiting at [facility]. If symptoms worsen return to emergency room. If no better on Tuesday follow-up with your established informatics nurse specialist. Please provide them with copies of labs and CT scan from the emergency room given to you. Departure Forms: Customer Survey General Discharge Information Prescriptions: Current Visit Scripts Oxycodone HCl/Acetaminophen (Percocet 5-325 MG Tablet) 1 TAB PO BID PRN PAIN #8 TAB (VERNON DICK) PA/CHIEF RESOURCE OFFICER Co-Sign Statement Statement: ED Attending supervision documentation- [] I saw and evaluated the patient. I have also reviewed all the pertinent lab results and diagnostic results. I agree with the findings and the plan of care as documented in the PA's/CHIEF RESOURCE OFFICER's documentation. [X] I have reviewed the ED Record and agree with the PA's/CHIEF RESOURCE OFFICER's documentation. [] Additions or exceptions (if any) to the PAs/CHIEF RESOURCE OFFICER's note and plan are summarized below: [] (VINNY DUMONT,SYED)
[2016-04-16 13:15] LABS: ABSOLUTE BASOPHIL COUNT 0 /CUMM (0.0-0.2); ABSOLUTE EOSINOPHIL COUNT 0.2 /CUMM (0.0-0.7); ABSOLUTE GRANULOCYTE CT 7.2 /CUMM (1.4-6.5); ABSOLUTE LYMPH COUNT 1.4 /CUMM (1.2-3.4); ABSOLUTE MONOCYTE COUNT 0.7 /CUMM (0.10-0.60); BASOPHIL % 0.2 % (0.0-2.0); EOSINOPHIL % 1.9 % (0-5); GRANULOCYTE % 76.1 % (42.2-75.2); HEMATOCRIT 45.4 % (42-52); MEAN CORPUSCULAR HGB 29.8 PG (27.0-31.0); MEAN CORPUSCULAR VOLUME 87.7 FL (80.0-94.0); MEAN PLATELET VOLUME 8.2 FL (7.4-10.4); PLATELET COUNT 277 /CUMM (130-400); RBC DISTRIBUTION WIDTH 13.8 % (11.5-14.5); RED BLOOD CELL CT 5.18 /CUMM (4.70-6.10); WHITE BLOOD CELL COUNT 9.5 /CUMM (4.8-10.8)
--- NOTE | 2016-04-16 14:44 | CT SCAN REPORT ---
EXAMINATION: CT ABDOMEN AND PELVIS WITH CONTRAST CLINICAL INFORMATION: Abdominal pain, diarrhea, history of remote gastric bypass surgery COMPARISON: 01/25/2015 TECHNIQUE: Multidetector volumetric imaging was performed of the abdomen and pelvis before and after the IV administration of 94 mL of Optiray 320 intravenous contrast. Sagittal and coronal reformatted images were obtained on the technologist's workstation. DLP: 939.00 mGy-cm FINDINGS: LUNG BASES: The visualized lung bases demonstrate trace atelectasis. LIVER, GALLBLADDER, AND BILIARY TREE: The liver is normal in size, shape, and attenuation. There is a stable subcentimeter hypoattenuating lesion in the dome of the right hepatic lobe, too small to characterize though statistically likely a small cyst. No biliary ductal dilatation is present. The gallbladder is unremarkable with no evidence of radiopaque gallstones, gallbladder wall thickening, or obvious pericholecystic inflammatory changes. PANCREAS: Unremarkable. SPLEEN: Mildly enlarged, measuring approximately 15 cm in craniocaudal dimension. ADRENAL GLANDS: Unremarkable. KIDNEYS AND URETERS: The kidneys are normal in size, shape, and attenuation. No hydronephrosis, hydroureter, or calculi seen. No perinephric stranding. BLADDER: Unremarkable. GASTROINTESTINAL TRACT: There are postoperative changes from gastric bypass surgery. No evidence of bowel obstruction. There is mild mural prominence of the distal sigmoid colon and rectum, without significant surrounding inflammation. The appendix is unremarkable. ABDOMINAL WALL: No significant hernia is appreciated. LYMPH NODES: Scattered mesenteric and retroperitoneal subcentimeter lymph nodes are present, without significant enlargement by size criteria. VASCULAR: Unremarkable. PELVIC VISCERA: Unremarkable. OSSEOUS STRUCTURES: Degenerative changes are noted in the visualized lower thoracic spine. IMPRESSION: 1. Mild mural prominence of the distal sigmoid colon and rectum. Though no significant surrounding inflammation is present, a mild colitis/proctitis is possible in the proper clinical setting. 2. Mild splenomegaly. 3. Status post gastric bypass surgery.
[2016-04-16] MEDS ORDERED: PERCOCET 5-3251 EACH PO (14:58)
[2016-04-16 15:12] VITALS: BP 112/62
== END 2016-04-16 15:14 ==
LOC: ERH 11:26
PROVIDERS: Physician Assistant
DX: K52.9 Noninfective gastroenteritis and colitis, unspecified (principal); K58.9 Irritable bowel syndrome, unspecified; R42 Dizziness and giddiness
CPT/HCPCS: 74177; 96374

== ENCOUNTER 2016-06-19 14:01 | Emergency (ER) | payer OTHER ==
[~2016-06-19] VITALS: Ht 165.1 cm; Wt 102.1 kg
[2016-06-19] MEDS ORDERED: BUPROPION XL150 MG PO (15:36)
[2016-06-19] MEDS ORDERED: ADVAIR 250-501 EACH INH (15:38)
[2016-06-19] MEDS ORDERED: FLUOXETINE HCL40 M1 PO (15:38)
[2016-06-19] MEDS ORDERED: GABAPENTIN300 M2 PO (15:39)
--- NOTE | 2016-06-19 15:39 | ED GENERAL ADULT ---
History of Present Illness General Chief Complaint: General Adult Stated Complaint: HEMORRHOID? Source: patient Exam Limitations: no limitations Vital Signs & Intake/Output Vital Signs & Intake/Output Vital Signs Date Time Temp Pulse Resp B/P Pulse O2 O2 Flow FiO2 Ox Delivery Rate 06/19 1607 98.7 67 18 123/65 99 Room Air 06/19 1415 98.4 77 20 129/81 96 Room Air Allergies Coded Allergies: NO KNOWN ALLERGIES (04/02/16) Reconcile Medications Albuterol Sulfate (Proair Hfa) 90 MCG HFA.AER.AD 2 PUF INH Q4-6 PRN PRN SHORTNESS OF BREATH (Reported) Amitriptyline HCl 100 MG TABLET 1 TAB PO QPM SLEEP HELP (Reported) Aripiprazole (Abilify) 5 MG TABLET 1 TAB PO DAILY SLEEP (Reported) Bupropion HCl (Bupropion XL) 150 MG TAB.ER.24H 1 TAB PO DAILY MENTAL HEALTH ( Reported) Bupropion HCl (Bupropion XL) 300 MG TAB.ER.24H 1 TAB PO QAM DEPRESSION ( Reported) Cholecalciferol (Vitamin D3) 1,000 UNIT TABLET 1 TAB PO DAILY SUPPLEMENT ( Reported) Clonazepam 1 MG TABLET 1 TAB PO BID ANXIETY (Reported) Clonazepam 0.5 MG TABLET 1 TAB PO DAILY ANXIETY (Reported) Dicyclomine Hydrochloride (Bentyl) 10 MG CAPSULE 1 CAP PO TID IBS (Reported) Duloxetine Hydrochloride (Cymbalta) 30 MG CAPSULE.DR 1 CAP PO DAILY DEPRESSION (Reported) Fluoxetine HCl 40 MG CAPSULE 1 CAP PO QAM MENTAL HEALTH (Reported) Fluticasone/Salmeterol (Advair 250-50 Diskus) 250 MCG-50 MCG/DOSE BLST.W.DEV 1 PUF INH BID BREATHING PROBLEMS (Reported) Gabapentin 300 MG CAPSULE 1 CAP PO DAILY SLEEP (Reported) Hydrochlorothiazide 12.5 MG TABLET 1 TAB PO DAILY WATER RETENTION (Reported) L-Methylfolate (Deplin-Algal Oil 15 MG Capsule) 15 MG-90.314 MG CAPSULE 1 CAP PO DAILY UNKNOWN (Reported) Multivitamin (One Daily Multivitamin) 1 EACH TABLET 1 TAB PO DAILY SUPPLEMENT (Reported) Oxycodone HCl 5 MG CAPSULE 1 CAP PO BIDP PRN Pain Pantoprazole Sodium (Protonix) 40 MG TABLET.DR 1 TAB PO DAILY ACID REFLUX ( Reported) Prednisolone Acetate 1 % DROPS.SUSP 1 GTT OD DAILY TRANSPLANT (Reported) Triage Note: PT TO ED C/O ? HEMORRHOID A FEW DAYS. HAS BEEN USING RX CREAM AND OTC CREAMS WITH NO RELIEF. STATES PAIN IS GETTING WORSE. Triage Nurses Notes Reviewed? yes HPI: 35 yo M PMH HLD, GERD, IBS, pilonidal cyst (s/p excision) presenting with rectal pain. Rectal pain for the last 4-5 days with defecation, evaluated by PMD 2 days ago, found to have hemorrhoid, treated with Preparation H and Anusol steroid cream without significant relief. Instructed to follow-up with surgeon for removal, patient called bariatric surgeon who performed his laparoscopic gastric sleeve, told that he was unable to provide further management of hemorrhoid. [facility] Denies fevers, chills, chest pain, shortness of breath, abdominal pain, nausea, vomiting, diarrhea, constipation, melena or hematochezia. (CARLI GARZA MD) Past History Travel History Traveled to [place] past 21 day No Medical History Any Pertinent Medical History? see below for history Neurological: NONE EENT: CARATICONAS EYE DISEASE Cardiovascular: hyperlipidemia Respiratory: asthma, SLEEP APNEA Gastrointestinal: GERD, irritable bowel syndrome Hepatic: NONE Renal: NONE Musculoskeletal: MRSA IN WOUND Psychiatric: anxiety, depression Endocrine: NONE Blood Disorders: NONE Cancer(s): NONE EP TECHNOLOGIST/Reproductive: NONE History of MRSA: No History of VRE: No History of CDIFF: No Surgical History Surgical History: BENIGN TUMOR REMOVAL BUTTOCKS, CYST REMOVAL COCCYX AND SACRAL REGION Psychosocial History Who do you live with Family What is your primary language Kiswahili Tobacco Use: Never used ETOH Use: denies use Illicit Drug Use: denies illicit drug use Family History Hx Contributory? Yes (CARLI GARZA MD) Review of Systems Review of Systems Constitutional: Reports: no symptoms. EENTM: Reports: no symptoms. Respiratory: Reports: no symptoms. Cardiovascular: Reports: no symptoms. GI: Reports: see HPI (rectal pain). Genitourinary: Reports: no symptoms. Musculoskeletal: Reports: no symptoms. Skin: Reports: no symptoms. Neurological/Psychological: Reports: no symptoms. Hematologic/Endocrine: Reports: no symptoms. Immunologic/Allergic: Reports: no symptoms. All Other Systems: Reviewed and Negative (CARLI GARZA MD) Physical Exam Physical Exam General Appearance: well developed/nourished, no apparent distress, alert, awake Head: atraumatic Eyes: Bilateral: normal appearance. Ears, Nose, Throat: normal pharynx, normal ENT inspection Neck: normal inspection Respiratory: normal breath sounds, no respiratory distress Cardiovascular: regular rate/rhythm, normal peripheral pulses Gastrointestinal: normal bowel sounds, soft, non-tender Rectal: see below Back: normal inspection Comments: Rectal: Small 1-2 cm hemorrhoid at the left anal verge, soft, pink without color change or evidence of thrombosis, no active bleeding Core Measures ACS in differential dx? No CVA/TIA Diagnosis: No Severe Sepsis Present: No Septic Shock Present: No (CARLI GARZA MD) Progress Differential Diagnoses I considered the following diagnoses in my evaluation of the patient: [ Uncompensated external hemorrhoid, thrombosed external hemorrhoid, rectal fissure, low concern for intra-abdominal surgical pathology] Plan of Care: Current Medications Sig/Vignesh Start time Last Medication Dose Stop Time Status Admin Oxycodone HCl 5 MG ONCE ONE 06/19 1544 UNVr (Roxicodone) 06/19 1545 Physician MDM: 68 Yo M PMH HTN, HLD, CAD, DM, paraplegia, neurogenic bladder ( chronic indwelling kyle) presenting with fever, hypoxia, AMS. VSS, rectal exam as above. DDx: Uncomplicated external hemorrhoid, thrombosed external hemorrhoid , rectal fissure, overall low concern for surgical abdominal pathology. Given no evidence of thrombosis on exam, no further ED intervention is necessary. Patient instructed to continue ongoing outpatient management with rectal steroid cream and symptomatic management with sits baths. Given follow-up information for colorectal surgeon and information for ED menstruation office contact should he be unable to arrange follow-up. Discharged with return to care precautions and close follow-up with colorectal surgery planned. The plan of care was discussed with the patient who expressed agreement and understanding. (KAYLA DUMONT,CARLI) Initial ED EKG: none (CARLI GARZA MD) Departure Departure Disposition: HOME OR SELF CARE Condition: Stable Clinical Impression Primary Impression: Hemorrhoid Qualifiers: Hemorrhoid type: unspecified Qualified Code: K64.9 - Unspecified hemorrhoids Referrals: MARCOS SEGOVIA MD Additional Instructions: Take tylenol as needed for pain. Continue using rectal steroids as prescribed. Follow up with Dr. Segovia (colorectal surgery), if you have difficulty getting an appointment please call ED administration ([phone]) to help you get an appointment. Return to the ED for any new, worsening, or concerning symptoms. Departure Forms: Customer Survey General Discharge Information Prescriptions: Current Visit Scripts Oxycodone HCl 1 CAP PO BIDP PRN Pain #6 CAP (KAYLA DUMONT,CARLI) Resident Co-Sign Statement Statement: ED Attending supervision documentation- [X] I saw and evaluated the patient. I have also reviewed all the pertinent lab results and diagnostic results. I agree with the findings and the plan of care as documented in the Resident's documentation. [X] I have reviewed the ED Record and agree with the Resident's documentation. [] Additions or exceptions (if any) to the Resident's note and plan are summarized below: [] (KATHRYN DUMONT,STEVE Watts) Critical Care Note Critical Care Note Critical Care Time: non-applicable (KAYLA DUMONT,CARLI)
[2016-06-19] MEDS ORDERED: PREDNISOLONE ACE5 ML OD (15:44)
[2016-06-19] MEDS ORDERED: OXYCODONE HCL5 M2 PO (15:59)
[2016-06-19 16:07] VITALS: BP 123/65
== END 2016-06-19 16:21 ==
LOC: ERH 14:01
DX: K64.9 Unspecified hemorrhoids (principal)

== ENCOUNTER → 2016-07-20 | Day surgery (SDC) | payer OTHER ==
[~2016-07-20] VITALS: Ht 165.1 cm; Wt 98.9 kg
[~2016-07-20] MED LIST changes: +ADVAIR 250-501 EACH INH; +AMOXICILLIN500 M2 PO; +BUPROPION XL150 MG PO; +FLUOXETINE HCL40 M1 PO; +GABAPENTIN300 M2 PO; +OXYCODONE HCL5 M2 PO; +PREDNISOLONE ACE5 ML OD
--- NOTE | 2016-07-20 16:26 | Operative Report ---
Operative/Inv Procedure Report Surgery Date: 07/20/16 Name of Procedure: Hemorrhoidectomy Pre-Operative Diagnosis: Symptomatic hemorrhoids Post-Operative Diagnosis: Same Estimated Blood Loss: scant Surgeon/Digital Media Sales Consultant: KENNETH DUMONT,MED Marie Anesthesia: local monitored anesthesi Operative/Procedure Note Note: After timeout and induction of anesthesia the patient was turned over into the prone jackknife position. Using lubrication, the anus was gently examined digitally, a retractor was inserted after injection of local anesthetic, the prolapsing hemorrhoid was identified in the left lateral position and picked up with a Johnson hemorrhoid clamp proximally, and then opposite distally a hemostat was placed on the anal skin. While keeping tension on these 2 clamps, a triangular incision is made from the anal verge proximally into the mucosa just around the Ojhnson. This hemorrhoid was thrombosed. Then using the cautery both for blunt and sharp cutting or coag dissection the skin and underlying hemorrhoidal tissue is dissected off of the sphincter muscle and then proximally around the mucosa leaving the base of the hemorrhoidal tissue intact which is then suture ligated with 2-0 Vicryl suture at this apex. Then this hemorrhoid is excised and the defect is closed reapproximating the mucosa deep, and the skin externally, with 3-0 Vicryl suture leaving a small gap at the end for possible drainage Bacitracin and a sterile gauze dressing is applied. EBL minimal lap and sponge counts correct wound expectancy contaminated, IV fluids crystalloid complications none patient tolerated the procedure well was awakened and returned to recovery room in satisfactory condition.
== END ==
LOC: STS 02:25
DX: K64.5 Perianal venous thrombosis (principal); K64.9 Unspecified hemorrhoids; I10 Essential (primary) hypertension; J45.909 Unspecified asthma, uncomplicated; Z86.14 Personal history of Methicillin resistant Staphylococcus aureus infection
CPT/HCPCS: 88304; J0131; J1100; J2250; J2405

== ENCOUNTER 2016-08-22 07:58 | Emergency (ER) | payer OTHER ==
[~2016-08-22] VITALS: Ht 165.1 cm; Wt 102.1 kg
[~2016-08-22 07:58] MED LIST changes: -AMOXICILLIN500 M2 PO
--- NOTE | 2016-08-22 09:12 | ED SKIN/ALLERGY COMPLAINT ---
History of Present Illness General Chief Complaint: Skin Rash/ Abcess Stated Complaint: ?MRSA WOUND ON BUTTOCKS Source: patient Exam Limitations: no limitations Allergies Coded Allergies: NO KNOWN ALLERGIES (04/02/16) Reconcile Medications Albuterol Sulfate (Proair Hfa) 90 MCG HFA.AER.AD 2 PUF INH Q4-6 PRN PRN SHORTNESS OF BREATH (Reported) Amitriptyline HCl 100 MG TABLET 1 TAB PO QPM SLEEP HELP (Reported) Amoxicillin 500 MG CAPSULE 1 CAP PO TID SKIN INFECTION Aripiprazole (Abilify) 5 MG TABLET 1 TAB PO DAILY SLEEP (Reported) Bupropion HCl (Bupropion XL) 150 MG TAB.ER.24H 1 TAB PO DAILY MENTAL HEALTH ( Reported) Bupropion HCl (Bupropion XL) 300 MG TAB.ER.24H 1 TAB PO QAM DEPRESSION ( Reported) Cholecalciferol (Vitamin D3) 1,000 UNIT TABLET 1 TAB PO DAILY SUPPLEMENT ( Reported) Clonazepam 1 MG TABLET 1 TAB PO BID ANXIETY (Reported) Clonazepam 0.5 MG TABLET 1 TAB PO DAILY ANXIETY (Reported) Dicyclomine Hydrochloride (Bentyl) 10 MG CAPSULE 1 CAP PO TID IBS (Reported) Duloxetine Hydrochloride (Cymbalta) 30 MG CAPSULE.DR 1 CAP PO DAILY DEPRESSION (Reported) Fluoxetine HCl 40 MG CAPSULE 1 CAP PO QAM MENTAL HEALTH (Reported) Fluticasone/Salmeterol (Advair 250-50 Diskus) 250 MCG-50 MCG/DOSE BLST.W.DEV 1 PUF INH BID BREATHING PROBLEMS (Reported) Gabapentin 300 MG CAPSULE 1 CAP PO DAILY SLEEP (Reported) Hydrochlorothiazide 12.5 MG TABLET 1 TAB PO DAILY WATER RETENTION (Reported) L-Methylfolate (Deplin-Algal Oil 15 MG Capsule) 15 MG-90.314 MG CAPSULE 1 CAP PO DAILY UNKNOWN (Reported) Multivitamin (One Daily Multivitamin) 1 EACH TABLET 1 TAB PO DAILY SUPPLEMENT (Reported) Oxycodone HCl 5 MG CAPSULE 1 CAP PO BIDP PRN Pain Oxycodone HCl/Acetaminophen (Percocet 5-325 MG Tablet) 5 MG-325 MG TABLET 1 TAB PO Q6P PRN pain Pantoprazole Sodium (Protonix) 40 MG TABLET.DR 1 TAB PO DAILY ACID REFLUX ( Reported) Prednisolone Acetate 1 % DROPS.SUSP 1 GTT OD DAILY TRANSPLANT (Reported) Sulfamethoxazole/Trimethoprim (Bactrim Ds Tablet) 800 MG-160 MG TABLET 1 TAB PO BID CELLULITIS RT BUTTOCK . Triage Note: TRIAGE: 35 Y/O MALE PRESENTS C/O ?ABCESS ON BUTTOCKS. CONCERNED THAT IT MAY TEST POSITIVE FOR MRSA IT HAS IN THE PAST. PAIN /. Triage Nurses Notes Reviewed? yes HPI: 35-year-old male with past medical history of MRSA skin abscess multiple times, CHRISTY on CPAP, anxiety, depression, is here after noticing a swelling and pain over his right buttock since last night. He denies any fever, chills, insect bites, itching, drainage. (ANTOINE MORELOS MD) Vital Signs & Intake/Output Vital Signs & Intake/Output Vital Signs Date Time Temp Pulse Resp B/P B/P Pulse O2 O2 Flow FiO2 Mean Ox Delivery Rate 08/22 1156 97.0 80 20 144/77 96 Room Air 08/22 1149 80 08/22 1000 98.7 70 22 140/88 96 Room Air 08/22 0832 99 Room Air 08/22 0801 98.0 72 18 134/81 98 Room Air Room Air Past History Travel History Traveled to [place] past 21 day No Medical History Any Pertinent Medical History? see below for history Neurological: NONE EENT: CARATICONAS EYE DISEASE Cardiovascular: hyperlipidemia Respiratory: asthma, SLEEP APNEA Gastrointestinal: GERD, irritable bowel syndrome Hepatic: NONE Renal: NONE Musculoskeletal: MRSA IN WOUND Psychiatric: anxiety, depression Endocrine: NONE Blood Disorders: NONE Cancer(s): NONE AREA COORDINATOR/Reproductive: NONE History of MRSA: No History of VRE: No History of CDIFF: No Surgical History Surgical History: BENIGN TUMOR REMOVAL BUTTOCKS, CYST REMOVAL COCCYX AND SACRAL REGION Psychosocial History Who do you live with Family What is your primary language Finnish Tobacco Use: Never used ETOH Use: denies use Illicit Drug Use: denies illicit drug use Family History Hx Contributory? No (ANTOINE MORELOS MD) Review of Systems Review of Systems Constitutional: Reports: no symptoms. EENTM: Reports: no symptoms. Respiratory: Reports: no symptoms. Cardiovascular: Reports: no symptoms. GI: Reports: no symptoms. Genitourinary: Reports: no symptoms. Musculoskeletal: Reports: no symptoms. Skin: Reports: see HPI, rash. Neurological/Psychological: Reports: no symptoms. Hematologic/Endocrine: Reports: no symptoms. All Other Systems: Reviewed and Negative (ANTOINE MORELOS MD) Physical Exam Physical Exam General Appearance: well developed/nourished, no apparent distress, alert, awake Comments: Physical examnination: General: obese patient, not in distress, not appearantly septic Head: Normocephalic, atraumatic Throat/mouth: Moist mucosa Neck: Supple, full range of motion, no thyromegaly Heart: Regular rate, regular rhythm Lung: Normal breath sound bilaterally Added sound not heard Abd: Soft, non-tender, no distention appreciated Back: Normal range of motion Extremities: Normal knee exam bilaterally, no pedal edema, Distal neurovascular intact, RIGHT BUTTOCK HAS <1 CM REDNESS WITH A PUNCTATE LESION, HAS 5 X 5 CM INDURATION WITH CLINICAL IMPRESSION OF ABSCESS, NOT DRAINING CURRENTLY. No fluctuance noted. Neurologic: Alert, oriented x3, Cranial exam grossly intact, Speech is clear and coherent Skin: Warm and dry Psychiatric: cooperative, coherant, ANXIOUS (ANTOINE MORELOS MD) Progress Differential Diagnosis: abscess/cellulitis, contact dermatitis (ANTOINE MORELOS MD) Plan of Care: Orders Procedure Date/time Status US-SUPERFICIAL IMAGING EXTREMI 08/22 1018 Active Incision and drainage to be performed with pus to be sent for culture and sensitivity if US shows drainable abscess. 08/22/16: Patient does not have drainable abscess according to radiology. He can be sent home on by mouth Bactrim for 7 days with a follow-up within and or progress of the lesion. No change in plan if he gets better. But in case he starts draining pus or gets worse, planned to go for I&D with pus culture and sensitivity test. This plan has been discussed with the patient and he agrees to it. He also wants to follow up with surgery as outpatient which he will request an appointment by himself. (ANTOINE MORELOS MD) Comments: 08/22/2016 11:31:38 AM NO DRAINABLE ABSCESS, INDURATION PRESENT, per radiologist. (ULISES DUMONT,LEBRON Roberts) Departure Departure Disposition: HOME OR SELF CARE Condition: Stable Clinical Impression Primary Impression: Cellulitis of buttock, right Referrals: EB LAMB MD (PCP/Family) Additional Instructions: Please return to emergency if symptoms get worse, or if the wound is draining pus. Departure Forms: Customer Survey General Discharge Information Prescriptions: Current Visit Scripts Oxycodone HCl/Acetaminophen (Percocet 5-325 MG Tablet) 1 TAB PO Q6P PRN pain #10 TAB Amoxicillin 1 CAP PO TID #21 CAP Sulfamethoxazole/Trimethoprim (Bactrim Ds Tablet) 1 TAB PO BID #14 TAB . (JETHRO DUMONT,ANTOINE) Resident Co-Sign Statement Statement: ED Attending supervision documentation- [x] I saw and evaluated the patient. I have also reviewed all the pertinent lab results and diagnostic results. I agree with the findings and the plan of care as documented in the Resident's documentation. I could not appreciate a definitive area of fluctuance so an ultrasound will be ordered to determine the need for I and D. [] I have reviewed the ED Record and agree with the Resident's documentation. [] Additions or exceptions (if any) to the Resident's note and plan are summarized below: [] (ULISES DUMONT,LEBRON Roberts)
[2016-08-22] MEDS ORDERED: BACTRIM DS TAB1 EACH PO (11:43)
[2016-08-22 11:56] VITALS: BP 144/77
[2016-08-22] MEDS ORDERED: PERCOCET 5-3251 EACH PO ×2 (11:58→12:05)
[2016-08-22] MEDS ORDERED: AMOXICILLIN500 M2 PO (12:05)
--- NOTE | 2016-08-23 08:42 | ULTRASOUND REPORT ---
EXAMINATION: US SUPERFICIAL IMAGING, EXTREMITY CLINICAL INFORMATION: Redness and induration over right buttock. Rule out abscess collection over the right buttock. History of multiple MRSA abscess. COMPARISON: CT scan of the abdomen and pelvis dated 04/16/2016. TECHNIQUE: Focused ultrasound of the right buttock was performed in region of patient's erythema and induration. Real-time assessment by the reading radiologist was performed. FINDINGS: In region of patient's induration and erythema, diffuse skin thickening and edema is noted with mild hyperemia demonstrated with color Doppler imaging. No defined focal fluid collections/abscesses is identified. No draining sinus tract is appreciated. IMPRESSION: Extensive soft tissue thickening and edema, consistent with a cellulitis. No drainable abscess collection is seen.
== END 2016-08-22 12:30 ==
LOC: ERH 07:58
DX: L03.317 Cellulitis of buttock (principal)
CPT/HCPCS: 76881

== ENCOUNTER 2016-08-31 14:58 | Emergency (ER) | payer OTHER ==
[~2016-08-31] VITALS: Ht 165.1 cm; Wt 98.9 kg
[~2016-08-31 14:58] MED LIST changes: +AMOXICILLIN500 M2 PO
[2016-08-31] MEDS ORDERED: PERCOCET 5-3251 EACH PO (17:01)
[2016-08-31] MEDS ORDERED: BACTRIM DS TAB1 EACH PO (17:01)
--- NOTE | 2016-08-31 17:02 | ED SKIN/ALLERGY COMPLAINT ---
History of Present Illness General Chief Complaint: Skin Rash/ Abcess Stated Complaint: RECTAL ABCESS Source: patient, old records Exam Limitations: no limitations Vital Signs & Intake/Output Vital Signs & Intake/Output Vital Signs Date Time Temp Pulse Resp B/P B/P Pulse O2 O2 Flow FiO2 Mean Ox Delivery Rate 08/31 1710 74 16 148/83 99 Room Air 08/31 1503 98.5 87 20 160/87 100 Room Air Allergies Coded Allergies: NO KNOWN ALLERGIES (04/02/16) Reconcile Medications Albuterol Sulfate (Proair Hfa) 90 MCG HFA.AER.AD 2 PUF INH Q4-6 PRN PRN SHORTNESS OF BREATH (Reported) Amitriptyline HCl 100 MG TABLET 1 TAB PO QPM SLEEP HELP (Reported) Amoxicillin 500 MG CAPSULE 1 CAP PO TID SKIN INFECTION Aripiprazole (Abilify) 5 MG TABLET 1 TAB PO DAILY SLEEP (Reported) Bupropion HCl (Bupropion XL) 150 MG TAB.ER.24H 1 TAB PO DAILY MENTAL HEALTH ( Reported) Bupropion HCl (Bupropion XL) 300 MG TAB.ER.24H 1 TAB PO QAM DEPRESSION ( Reported) Cholecalciferol (Vitamin D3) 1,000 UNIT TABLET 1 TAB PO DAILY SUPPLEMENT ( Reported) Clonazepam 1 MG TABLET 1 TAB PO BID ANXIETY (Reported) Clonazepam 0.5 MG TABLET 1 TAB PO DAILY ANXIETY (Reported) Dicyclomine Hydrochloride (Bentyl) 10 MG CAPSULE 1 CAP PO TID IBS (Reported) Duloxetine Hydrochloride (Cymbalta) 30 MG CAPSULE.DR 1 CAP PO DAILY DEPRESSION (Reported) Fluoxetine HCl 40 MG CAPSULE 1 CAP PO QAM MENTAL HEALTH (Reported) Fluticasone/Salmeterol (Advair 250-50 Diskus) 250 MCG-50 MCG/DOSE BLST.W.DEV 1 PUF INH BID BREATHING PROBLEMS (Reported) Gabapentin 300 MG CAPSULE 1 CAP PO DAILY SLEEP (Reported) Hydrochlorothiazide 12.5 MG TABLET 1 TAB PO DAILY WATER RETENTION (Reported) L-Methylfolate (Deplin-Algal Oil 15 MG Capsule) 15 MG-90.314 MG CAPSULE 1 CAP PO DAILY UNKNOWN (Reported) Multivitamin (One Daily Multivitamin) 1 EACH TABLET 1 TAB PO DAILY SUPPLEMENT (Reported) Oxycodone HCl 5 MG CAPSULE 1 CAP PO BIDP PRN Pain Oxycodone HCl/Acetaminophen (Percocet 5-325 MG Tablet) 5 MG-325 MG TABLET 1 TAB PO Q6P PRN pain Oxycodone HCl/Acetaminophen (Percocet 5-325 MG Tablet) 5 MG-325 MG TABLET 1 TAB PO BID pain Pantoprazole Sodium (Protonix) 40 MG TABLET.DR 1 TAB PO DAILY ACID REFLUX ( Reported) Prednisolone Acetate 1 % DROPS.SUSP 1 GTT OD DAILY TRANSPLANT (Reported) Sulfamethoxazole/Trimethoprim (Bactrim Ds Tablet) 800 MG-160 MG TABLET 1 TAB PO BID abscess Sulfamethoxazole/Trimethoprim (Bactrim Ds Tablet) 800 MG-160 MG TABLET 1 TAB PO BID CELLULITIS RT BUTTOCK . Triage Note: PT STATES LAST WEEK HE HAD A MRSA INFECTION ON HIS BUTTOCKS WOUND. STATES HE HAS HAD IT 6 TIMES ALREADY IN THE SAME SPOT. NOW HE HAS A SPOT BELOW THE ORIGINAL SPOT WHICH HE THINKS IS MRSA. STATES HE IS HAVING ABDOMINAL PAIN X 2 DAYS WITH DIARRHEA 7-8 TIMES TODAY Triage Nurses Notes Reviewed? yes Onset: Abrupt Duration: day(s):, constant, continues in ED Timing: recent history No Modifying Factors: none HPI: 35-year-old male comes into emergency room for further evaluation of possible abscess to his right buttocks. Patient reports he had an abscess drained about a week ago. Patient finished a course of Bactrim. Patient reports that a little bit below his other abscess he has some pain and was concerned about another developing abscess. Denies any fever chills vomiting. Denies any other associated symptoms. (JAMES PETERSON) Past History Travel History Traveled to [place] past 21 day No Medical History Any Pertinent Medical History? see below for history Neurological: NONE EENT: CARATICONAS EYE DISEASE Cardiovascular: hyperlipidemia Respiratory: asthma, SLEEP APNEA Gastrointestinal: GERD, irritable bowel syndrome Hepatic: NONE Renal: NONE Musculoskeletal: MRSA IN WOUND Psychiatric: anxiety, depression Endocrine: NONE Blood Disorders: NONE Cancer(s): NONE HOGSHEAD OPENER/Reproductive: NONE History of MRSA: No History of VRE: No History of CDIFF: No Isolation History: Contact Surgical History Surgical History: BENIGN TUMOR REMOVAL BUTTOCKS, CYST REMOVAL COCCYX AND SACRAL REGION Psychosocial History Who do you live with Family What is your primary language Croatian Tobacco Use: Never used ETOH Use: denies use Illicit Drug Use: denies illicit drug use Family History Hx Contributory? No (JAMES PETERSON) Review of Systems Review of Systems Constitutional: Reports: no symptoms. EENTM: Reports: no symptoms. Respiratory: Reports: no symptoms. Cardiovascular: Reports: no symptoms. GI: Reports: no symptoms. Genitourinary: Reports: no symptoms. Musculoskeletal: Reports: no symptoms. Skin: Reports: see HPI. Neurological/Psychological: Reports: no symptoms. Hematologic/Endocrine: Reports: no symptoms. Immunologic/Allergic: Reports: no symptoms. All Other Systems: Reviewed and Negative (JAMES PETERSON) Physical Exam Physical Exam General Appearance: well developed/nourished, mild distress Head: atraumatic Eyes: Bilateral: normal appearance. Ears, Nose, Throat: normal ENT inspection, hearing grossly normal Neck: normal inspection Respiratory: no respiratory distress Cardiovascular: regular rate/rhythm Back: normal inspection Extremities: normal inspection, normal range of motion, no edema Neurologic/Psych: awake, alert, oriented x 3, normal mood/affect Skin: intact Skin Problem Location: right buttocks Skin Problem Character: patient has some induration over area of previous abscess drainage, no warmth, no fluctuance, Below that there is some superficial sloughing of skin, no fluctuance, some mild erythema, no induration, Lymphatic: no anterior cervical ryan (JAMES PETERSON) Progress Differential Diagnosis: abscess/cellulitis, allergic reaction, contact dermatitis, shingles, perirectal abscess Plan of Care: 08/31/2016 5:47:57 PM There is no clinical evidence of recurrent abscess at this time. Patient started on Bactrim. Follow-up with primary care doctor. Follow-up with your general surgeon. Warm soaks. Return if any other concerns. Understands and agrees with plan of care. (JAMES PETERSON) Departure Departure Disposition: HOME OR SELF CARE Condition: Stable Clinical Impression Primary Impression: Abscess re-check Secondary Impressions: MRSA carrier Referrals: EB LAMB MD (PCP/Family) Additional Instructions: Take Bactrim and Percocet as prescribed. Warm soaks. Follow-up with your general surgeon. Return if any concerns worsening symptoms. Please go over all results of today's visit with your primary care doctor. Contact your primary care doctor to let them know you were here in the emergency room. There may be nonspecific findings which may not be related to your visit today here in the emergency room but may require further evaluation and chronic monitoring by your primary care doctor. If you had a laceration today the chance of foreign body always remains. You should follow-up with your primary care doctor for recheck in 3-5 days for a wound check. If you had an x-ray done there is a chance that a fracture could have been missed on initial read and you should follow-up with your primary care doctor for repeat x-rays if symptoms persist. If your blood pressure was elevated here in the emergency room please have rechecked by her primary care doctor within the next 48 hours by your primary care doctor. If you were prescribed a narcotic here in the emergency room or any type of controlled substances you're not allowed to drive while taking this medication or operate any type of heavy machinery. Narcotics can make you feel lightheaded dizziness nausea and can cause constipation. You may need to shredder picker a stool softener. Thank you for choosing [facility] emergency room. Please return to the emergency room immediately if you have any other concerns worsening of symptoms. Departure Forms: Customer Survey General Discharge Information Prescriptions: Current Visit Scripts Oxycodone HCl/Acetaminophen (Percocet 5-325 MG Tablet) 1 TAB PO BID #10 TAB Sulfamethoxazole/Trimethoprim (Bactrim Ds Tablet) 1 TAB PO BID #14 TAB (JAMES PETERSON) PA/RETORT OR CONDENSER PRESS OPERATOR Co-Sign Statement Statement: ED Attending supervision documentation- I saw and evaluated the patient. I have also reviewed all the pertinent lab results and diagnostic results. I agree with the findings and the plan of care as documented in the PA's/RETORT OR CONDENSER PRESS OPERATOR's documentation. x I have reviewed the ED Record and agree with the PA's/RETORT OR CONDENSER PRESS OPERATOR's documentation. [] Additions or exceptions (if any) to the PAs/RETORT OR CONDENSER PRESS OPERATOR's note and plan are summarized below: [] (LEANDRO DUMONT,BRIELLE)
[2016-08-31 17:10] VITALS: BP 148/83
== END 2016-08-31 17:11 ==
LOC: ERH 14:58
DX: Z48.01 Encounter for change or removal of surgical wound dressing (principal); Z22.322 Carrier or suspected carrier of Methicillin resistant Staphylococcus aureus

== ENCOUNTER 2016-09-19 19:00 | Inpatient (IN) | payer OTHER ==
[~2016-09-19] VITALS: Ht 165.1 cm; Wt 99.8 kg
[~2016-09-19 19:00] MED LIST changes: +KEFLEX500 M1 PO; +NORCO 5-325 TA1 EACH PO
--- NOTE | 2016-09-19 19:30 | NUR ---
TRIAGE: 35 Y/O MALE PRESENTS C/O LEFT BUTTOCKS ABCESS. REPORTS WAS RECENTLY HERE AND WAS SUPPOSED TO BE ADMITTED BUT WAS NOT ADMITTED. NOW REPORTS ABCESS IS DRAINING DOWN HIS LEG. PAIN 01/14.
--- NOTE | 2016-09-19 20:47 | ED SKIN/ALLERGY COMPLAINT ---
History of Present Illness General Chief Complaint: Skin Rash/ Abcess Stated Complaint: ABCESS TO LT BUTT CHEEK Source: patient Exam Limitations: no limitations Vital Signs & Intake/Output Vital Signs & Intake/Output Vital Signs Date Time Temp Pulse Resp B/P B/P Pulse O2 O2 Flow FiO2 Mean Ox Delivery Rate 09/20 0222 98.4 65 20 130/86 97 09/20 0152 97.1 74 22 128/79 98 09/19 2254 98.5 79 20 131/62 98 Room Air 09/19 2117 Room Air 09/19 1928 98.7 98 18 173/96 100 Room Air Room Air ED Intake and Output 09/20 0000 09/19 1200 Intake Total Output Total Balance Patient 220 lb Weight Weight Reported by Patient Measurement Method Allergies Coded Allergies: NO KNOWN ALLERGIES (04/02/16) Triage Note: TRIAGE: 35 Y/O MALE PRESENTS C/O LEFT BUTTOCKS ABCESS. REPORTS WAS RECENTLY HERE AND WAS SUPPOSED TO BE ADMITTED BUT WAS NOT ADMITTED. NOW REPORTS ABCESS IS DRAINING DOWN HIS LEG. PAIN 01/14. Triage Nurses Notes Reviewed? yes Onset: Abrupt Duration: week(s): (1), constant, continues in ED, getting worse Timing: single episode today Severity: moderate, severe Severity Numbers: 10 Location: left buttocks/perineium Possible Factors: abscess No Modifying Factors: none HPI: 35-year-old male with past medical history of recurrent abscesses presents for evaluation of an abscess on his left buttock and perineum. Patient has been seen multiple times in the past few days for the same complaint. Patient reports that for the past week he has noticed a swollen painful area on the left side of his but and perineum. The area has gradually increased in size and become more painful. He is was seen here the past few days and multiple drainage attempts were made. He is placed on antibiotics and given pain medication. He feels as though the pain is worse and the abscess is getting bigger. Yesterday he noticed drainage dripping down his leg. He denies any fevers or chills, bright red blood per rectum, abdominal pain, chest pain or shortness of breath. (AMBER PUTNAM,GAEL) Reconcile Medications Albuterol Sulfate (Proair Hfa) 90 MCG HFA.AER.AD 2 PUF INH Q4-6 PRN PRN SHORTNESS OF BREATH (Reported) Amitriptyline HCl 100 MG TABLET 1 TAB PO QPM SLEEP HELP (Reported) Amoxicillin 500 MG CAPSULE 1 CAP PO TID SKIN INFECTION Aripiprazole (Abilify) 5 MG TABLET 1 TAB PO DAILY MOOD STABILITY (Reported) Bupropion HCl (Bupropion XL) 150 MG TAB.ER.24H 1 TAB PO DAILY MENTAL HEALTH ( Reported) Bupropion HCl (Bupropion XL) 300 MG TAB.ER.24H 1 TAB PO QAM DEPRESSION ( Reported) Cephalexin (Keflex) 500 MG CAPSULE 1 CAP PO TID abscess Cholecalciferol (Vitamin D3) 1,000 UNIT TABLET 1 TAB PO DAILY SUPPLEMENT ( Reported) Clonazepam 0.5 MG TABLET 1 TAB PO 1300 ANXIETY (Reported) Clonazepam 1 MG TABLET 1 TAB PO BID ANXIETY (Reported) Dicyclomine Hydrochloride (Bentyl) 10 MG CAPSULE 1 CAP PO TID IBS (Reported) Fluoxetine HCl 40 MG CAPSULE 1 CAP PO QAM MENTAL HEALTH (Reported) Fluticasone/Salmeterol (Advair 250-50 Diskus) 250 MCG-50 MCG/DOSE BLST.W.DEV 1 PUF INH BID BREATHING PROBLEMS (Reported) Gabapentin 300 MG CAPSULE 2 CAP PO TID Nerve Pain (Reported) Hydrochlorothiazide 12.5 MG TABLET 1 TAB PO DAILY WATER RETENTION (Reported) Hydrocodone/Acetaminophen ([place] 5-325 Tablet) 5 MG-325 MG TABLET 1-2 TAB PO Q6P PRN PAIN L-Methylfolate (Deplin-Algal Oil 15 MG Capsule) 15 MG-90.314 MG CAPSULE 1 CAP PO DAILY UNKNOWN (Reported) Multivitamin (One Daily Multivitamin) 1 EACH TABLET 1 TAB PO DAILY SUPPLEMENT (Reported) Oxycodone HCl 5 MG CAPSULE 1 CAP PO BIDP PRN Pain Oxycodone HCl/Acetaminophen (Percocet 5-325 MG Tablet) 5 MG-325 MG TABLET 1 TAB PO Q6P PRN pain Oxycodone HCl/Acetaminophen (Percocet 5-325 MG Tablet) 5 MG-325 MG TABLET 1 TAB PO BID pain Oxycodone HCl/Acetaminophen (Percocet 5-325 MG Tablet) 5 MG-325 MG TABLET 1 TAB PO BID PRN pain Pantoprazole Sodium (Protonix) 40 MG TABLET.DR 1 TAB PO DAILY ACID REFLUX ( Reported) Prednisolone Acetate 1 % DROPS.SUSP 1 GTT OD DAILY TRANSPLANT (Reported) Sulfamethoxazole/Trimethoprim (Bactrim Ds Tablet) 800 MG-160 MG TABLET 1 TAB PO BID abscess Sulfamethoxazole/Trimethoprim (Bactrim Ds Tablet) 800 MG-160 MG TABLET 1 TAB PO BID CELLULITIS RT BUTTOCK . Sulfamethoxazole/Trimethoprim (Bactrim Ds Tablet) 800 MG-160 MG TABLET 1 TAB PO BID abscess (FRANCISCO JAVIER DUMONT,JACQUELINE Benz) Past History Travel History Traveled to [place] past 21 day No Medical History Any Pertinent Medical History? see below for history Neurological: NONE EENT: CARATICONAS EYE DISEASE Cardiovascular: hyperlipidemia Respiratory: asthma, SLEEP APNEA Gastrointestinal: GERD, irritable bowel syndrome Hepatic: NONE Renal: NONE Musculoskeletal: MRSA IN WOUND Psychiatric: anxiety, depression Endocrine: NONE Blood Disorders: NONE Cancer(s): NONE ALLERGIST/PEDIATRIC PULMONOLOGIST/Reproductive: NONE History of MRSA: No History of VRE: No History of CDIFF: No Surgical History Surgical History: BENIGN TUMOR REMOVAL BUTTOCKS, CYST REMOVAL COCCYX AND SACRAL REGION Psychosocial History Who do you live with Family What is your primary language Salvadorean Tobacco Use: Never used ETOH Use: denies use Illicit Drug Use: denies illicit drug use Family History Hx Contributory? Yes (GAEL CLARK PA-C) Review of Systems Review of Systems Constitutional: Reports: no symptoms. EENTM: Reports: no symptoms. Respiratory: Reports: no symptoms. Cardiovascular: Reports: no symptoms. GI: Reports: no symptoms. Genitourinary: Reports: no symptoms. Musculoskeletal: Reports: no symptoms. Skin: Reports: see HPI (abscess, pain). Neurological/Psychological: Reports: no symptoms. Hematologic/Endocrine: Reports: no symptoms. Immunologic/Allergic: Reports: no symptoms. All Other Systems: Reviewed and Negative (GAEL CLARK PA-C) Physical Exam Physical Exam General Appearance: well developed/nourished, alert, awake, moderate distress Head: atraumatic, normal appearance Eyes: Bilateral: normal appearance, PERRL, EOMI. Ears, Nose, Throat: normal pharynx, normal ENT inspection, hearing grossly normal Neck: normal inspection, supple, full range of motion Respiratory: normal breath sounds, chest non-tender, no respiratory distress Cardiovascular: regular rate/rhythm, normal peripheral pulses Peripheral Pulses: 2+ radial (R), 2+ radial (L) Gastrointestinal: normal bowel sounds, soft, non-tender, no organomegaly Rectal: normal rectal tone, mass, tenderness, there is a 4cm diameter area of erythema and induration loctaed on the left lower buttock and extending into the perineum. there are no focal fluctuiant areas. there is a small amount of discharge present Back: normal inspection, normal range of motion, no vertebral tenderness Extremities: normal inspection, normal capillary refill, normal range of motion, no edema Neurologic/Psych: no motor/sensory deficits, awake, alert, oriented x 3, normal gait, normal mood/affect Reflexes: 2+: knee (R), knee (L). Skin: intact, normal color (BLACK PA-C,GAEL) Progress Differential Diagnosis: abscess/cellulitis, angioedema, contact dermatitis, urticaria, mrsa, sepsis Plan of Care: Orders Procedure Date/time Status Regular Diet 09/20 B Active CBC WITHOUT DIFFERENTIAL 09/20 0600 Active BASIC ELECTROLYTES PLUS BUN&CR 09/20 0600 Active Precautions 09/20 0239 Active Vital Signs 09/20 0230 Active Teach/Educate 09/20 023 Active Pain Treatment and Response 09/20 0230 Active Nutritional Intake, Monitor 09/20 0230 Active Isolation 09/20 0230 Active Intake & Output 09/20 0230 Active Patient Care Conference 09/20 0230 Active Activity/Ambulation 09/20 0230 Active Pathway - chart 09/20 0209 Active Pathway - chart 09/20 0207 Active Patient Data 09/20 0207 Active BLOOD CULTURE 09/20 0110 Active BLOOD CULTURE 09/20 0102 Active Saline Lock 09/20 0047 Active Misc Message 09/20 0047 Active ED Holding Orders 09/20 0047 Active Admit to inpatient 09/20 0047 Active Vital Signs 09/20 0047 Complete Code Status 09/20 0047 Active Patient Data 09/20 0041 Active House Staff 09/20 UNK Active Lab Add-on Test 09/20 UNK Active VTE Mechanical Prophylaxis 09/20 UNK Active Vital Signs 09/20 UNK Active GLYCOSYLATED HGB 09/19 2118 Active COMPREHENSIVE METABOLIC PANEL 09/19 2102 Active CBC WITHOUT DIFFERENTIAL 09/19 2101 Complete Intake & Output 09/19 1927 Active Current Medications Sig/Vignesh Start time Last Medication Dose Stop Time Status Admin Amitriptyline HCl 100 MG AT BEDTIME 09/20 2200 AC (Elavil 50 MG Tablet) Bupropion HCl 150 MG 1600 09/20 1600 AC (Wellbutrin XL) Clonazepam 0.5 MG 1300 09/20 1300 AC (KlonoPIN) 09/27 1259 Vancomycin HCl 1,500 MG Q12H 09/20 1200 AC Sodium Chloride 250 ML (Normal Saline 0.9%) Aripiprazole 5 MG DAILY 09/20 1000 AC (Abilify) Bupropion HCl 300 MG QAM 09/20 1000 AC (Wellbutrin XL) Enoxaparin Sodium 40 MG DAILY 09/20 1000 AC (Lovenox) Fluoxetine HCl 40 MG DAILY 09/20 1000 AC (Prozac) Hydrochlorothiazide 12.5 MG DAILY 09/20 1000 AC (Hydrodiuril) Omeprazole 40 MG DAILY AC 09/20 0700 AC (Prilosec) Ampicillin Sodium/ 1,500 MG Q6 09/20 0600 AC Sulbactam Sodium (Unasyn) Sodium Chloride 100 ML (Normal Saline 0.9%) Gabapentin 600 MG Q8 09/20 0600 AC (Neurontin) Acetaminophen 650 MG Q6P PRN 09/20 0215 AC (Tylenol) Morphine Sulfate 2 MG Q4P PRN 09/20 0215 AC (Morphine) Oxycodone/ 1 TAB Q6P PRN 09/20 021 AC 09/20 Acetaminophen 0416 (Percocet) Dicyclomine HCl 10 MG TID 09/20 021 AC 09/20 (Bentyl) 0312 Clonazepam 1 MG BID 09/21 211 AC 09/20 (Klonopin 1MG Tab) 09/27 210 0311 Laboratory Tests 09/19/162117: Anion Gap 14, Estimated GFR > 60, BUN/Creatinine Ratio 13.6, Glucose 91, Hemoglobin A1c Pending, Calcium 9.3, Total Bilirubin 0.4, AST 20, ALT 33, Alkaline Phosphatase 95, Total Protein 7.5, Albumin 4.3, Globulin 3.2, Albumin/ Globulin Ratio 1.3, CBC w Diff NO MAN DIFF REQ, RBC 4.49 L, MCV 89.0, MCH 30.2, RDW 13.8, MPV 7.5, Gran % 73.3, Lymphocytes % 18.4 L, Monocytes % 6.1, Eosinophils % 1.8, Basophils % 0.4, Absolute Granulocytes 7.4 H, Absolute Lymphocytes 1.9, Absolute Monocytes 0.6, Absolute Eosinophils 0.2, Absolute Basophils 0, PUBS MCHC 34.0 Microbiology 09/20 0115 BLOOD: Blood Culture - RECD 09/205 BLOOD: Blood Culture - RECD 09/21 39 BLOOD: Blood Culture - CAN Cancelled: Cancelled via OE: ORDERED INCORRECTLY 09/21 39 BLOOD: Blood Culture - CAN Cancelled: Quantity not sufficient for Aerobic blood culture bottle. There is a large indurated erythematous area approximately 4 cm in diameter located on the left inferior buttock and perineum. It is discretely tender to palpation. No focal fluctuant areas. Very small amount of discharge. Patient will have repeat blood work and a scan of his pelvis to rule out an larger internal abscess. Patient will be given 2 mg of IV Dilaudid. 12:30 AM: CT of the pelvis with contrast shows that the soft tissue swelling has increased from previous. There is still no drainable abscess. This is the patient's third visit this week for this complaint. He feels that he is not able to be adequate treated at home. His pain is increasing. Patient will be admitted for pain control and IV antibiotics. Blood cultures obtained. Patient be given a dose of vancomycin and Ancef in the emergency department. He'll then be admitted for further evaluation. Hospitalist paged. Discussed treatment plan with patient. Reviewed all results of today's visit with patient. Patient is nontoxic appearing agrees with the plan. (AMBER PUTNAM,GAEL) Diagnostic Imaging: Viewed by Me: CT Scan. Discussed w/RAD: CT Scan. Comments: PATIENT: VERNON ALICIA JR PRESENT AGE: 35 PATIENT ACCOUNT NO: [id number] : 78 LOCATION: [facility] ORDERING PHYSICIAN: GAEL CLARK PA-C SERVICE DATE: 09/19/16 EXAM TYPE: CAT - CT PELVIS W IV CONTRAST EXAMINATION: CT PELVIS WITH IV CONTRAST CLINICAL INFORMATION: Pain and swelling. Discharge and induration. Follow-up. COMPARISON: 09/18/2016. TECHNIQUE: Helical scanning was performed with submillimeter collimation through the pelvis with 94 mL of Optiray 320 intravenous contrast. Sagittal and coronal multiplanar 2-D reconstructions were obtained. DLP: 812 mGy-cm FINDINGS: PELVIS: There is no pelvic free fluid. Visualized unopacified loops of small and large bowel are unremarkable. The urinary bladder is partially filled and unremarkable. Again identified is soft tissue swelling within the subcutaneous tissues of the left buttock. This appears to be slightly more prominent than on the prior exam. There are no drainable fluid collections. There is no discernible fistulous tract. There are no pathologically enlarged pelvic or inguinal lymph nodes. There are scattered nonpathologically enlarged inguinal lymph nodes. OSSEOUS STRUCTURES: The visualized osseous structures are unremarkable. The lumbar vertebra are in normal alignment. IMPRESSION: Slight interval increase in degree of subcutaneous soft tissue swelling within the left buttock immediately lateral to the gluteal crease. No drainable fluid collection is demonstrable. Again, as stated on the prior report, pelvic MRI with contrast can provide for greater tissue detail. DICTATED BY: HUMBERTO GONGORA MD DATE/TIME DICTATED:09/19/162339 LOADER OPERATOR/GROUND LEADER:TONI DATE/TIME TRANSCRIBED:09/19/162339 (GAEL CLARK PA-C) Departure Departure Disposition: STILL A PATIENT Condition: Stable Clinical Impression Primary Impression: Abscess Referrals: BO MENDOZA,SAVANNA Bhardwaj (PCP/Family) Departure Forms: Customer Survey General Discharge Information Admission Note Spoke With: VEGA MEYERS MD Documentation of Exam: Documentation of any treatments & extenuating circumstances including Concerns Regarding Discharge (functional status, medication knowledge or non-compliance, living conditions, etc.) that warrant an admission rather than observation: [IV antibiotics, IV pain medication, IV fluids, pelvic MRI, surgical consult] (GAEL CLARK PA-C) PA/FOOD SERVICE CLERK Co-Sign Statement Statement: ED Attending supervision documentation- [] I saw and evaluated the patient. I have also reviewed all the pertinent lab results and diagnostic results. I agree with the findings and the plan of care as documented in the PA's/FOOD SERVICE CLERK's documentation. [X] I have reviewed the ED Record and agree with the PA's/FOOD SERVICE CLERK's documentation. [] Additions or exceptions (if any) to the PAs/FOOD SERVICE CLERK's note and plan are summarized below: [] (FRANCISCO JAVIER DUMONT,JACQUELINE Benz)
--- NOTE | 2016-09-19 21:21 | NUR ---
PT EVAL'D BY VELMA CLARK. IV ESTABLISHED FOR CAT SCAN. PT STATING "I HAD ONE YESTERDAY." EXPLAINED THAT PER MD MCINTYRE AND PA THEY WANT TO COMPARE SINCE PT IS STATING "IT HAS GOT MUCH WORSE." LABS OBTAINED VIA [facility] AND SENT TO LAB. PT REPORTING "I REALLY HOPE I GET ADMITTED."
[2016-09-19 21:27] LABS: ABSOLUTE BASOPHIL COUNT 0 /CUMM (0.0-0.2); ABSOLUTE EOSINOPHIL COUNT 0.2 /CUMM (0.0-0.7); ABSOLUTE GRANULOCYTE CT 7.4 /CUMM (1.4-6.5); ABSOLUTE LYMPH COUNT 1.9 /CUMM (1.2-3.4); ABSOLUTE MONOCYTE COUNT 0.6 /CUMM (0.10-0.60); BASOPHIL % 0.4 % (0.0-2.0); EOSINOPHIL % 1.8 % (0-5); GRANULOCYTE % 73.3 % (42.2-75.2); MEAN CORPUSCULAR HGB 30.2 PG (27.0-31.0); MEAN PLATELET VOLUME 7.5 FL (7.4-10.4); PLATELET COUNT 264 /CUMM (130-400); RBC DISTRIBUTION WIDTH 13.8 % (11.5-14.5); RED BLOOD CELL CT 4.49 /CUMM (4.70-6.10); WHITE BLOOD CELL COUNT 10.1 /CUMM (4.8-10.8)
--- NOTE | 2016-09-19 22:39 | NUR ---
PT REMAINS IN ROOM, STATES SOME RELIEF FROM IM PAIN MEDICATION, BUT STILL IN PAIN
--- NOTE | 2016-09-19 23:40 | NUR ---
AWAITS CTR RESULTS, IT WAS UNCLEAR TO DELAY FOR CT. TOLD IN REPORT PT INITIALLY REFUSED. CT IS BLUE AT THIS TIME PROVIDER AWARE.
--- NOTE | 2016-09-19 23:47 | CT SCAN REPORT ---
EXAMINATION: CT PELVIS WITH IV CONTRAST CLINICAL INFORMATION: Pain and swelling. Discharge and induration. Follow-up. COMPARISON: 09/18/2016. TECHNIQUE: Helical scanning was performed with submillimeter collimation through the pelvis with 94 mL of Optiray 320 intravenous contrast. Sagittal and coronal multiplanar 2-D reconstructions were obtained. DLP: 812 mGy-cm FINDINGS: PELVIS: There is no pelvic free fluid. Visualized unopacified loops of small and large bowel are unremarkable. The urinary bladder is partially filled and unremarkable. Again identified is soft tissue swelling within the subcutaneous tissues of the left buttock. This appears to be slightly more prominent than on the prior exam. There are no drainable fluid collections. There is no discernible fistulous tract. There are no pathologically enlarged pelvic or inguinal lymph nodes. There are scattered nonpathologically enlarged inguinal lymph nodes. OSSEOUS STRUCTURES: The visualized osseous structures are unremarkable. The lumbar vertebra are in normal alignment. IMPRESSION: Slight interval increase in degree of subcutaneous soft tissue swelling within the left buttock immediately lateral to the gluteal crease. No drainable fluid collection is demonstrable. Again, as stated on the prior report, pelvic MRI with contrast can provide for greater tissue detail.
--- NOTE | 2016-09-19 23:51 | NUR ---
CT IS RESULTED, PT UPDATED AND AWARE THAT HE IS WAITING ON PA.
--- NOTE | 2016-09-20 00:02 | NUR ---
PA IN FOR REASSESSMENT, AWARE PT WANTS TO DRINK. PT PACING AROUND ROOM.
--- NOTE | 2016-09-20 00:29 | NUR ---
PER PA PT TO BE ADMITTED ON PHONE WITH HOASPITALIST AT THIS TIME.
--- NOTE | 2016-09-20 00:36 | History & Physical ---
LISSETT DUMONT,[facility] 09/20/16 0036: General Information and HPI MD Statement: I have seen and personally examined VERNON ALICIA JR and documented this H&P. The patient is a 35 year old M who presented with a patient stated chief complaint of [abscess of left buttock cheek]. Source of Information: patient Exam Limitations: no limitations History of Present Illness: The patient is a 35-year-old male with a past medical history of recurrent right buttock abscesses MRSA positive, pilondial cyst s/p excision, GERD, anxiety, depression, irritable bowel syndrome, sleep apnea, and keratoconus presenting with worsening pain of his left buttock abscess. The patient states that he was originally in the emergency department on the for this abscess. An I&D was performed and the patient was discharged with Keflex and Bactrim for 7 days. The patient returned to the emergency department on the due to worsening pain with palpation and movement. He was worried abscess was coming back. He was discharge from the emergency department with instructions to continue his antibiotics. He has taken his antibiotics every day since the except today. Today the patient noticed that there was some dripping down his leg. The discharge was brown and bloody in color. He felt the abscess has gotten bigger and more painful than yesterday. The patient states the abscess in his R buttock usually resolve are drainage and antibitocs. He says this abscess is different than his prior ones. The patient endorses fever of 102.7. He was taking 2 Tylenol every 4 hours, about 8-10 total, which dropped his temperature 100-101.5 at home. He states the pain is an 11/10 throbbing pain. He states he has had 6 episodes of abscesses which have been lanced in the past year. The patient endorses wearing regular fitting cotton underwear. He is on disability due to his anxiety, depression, and degenerative eye disease. Allergies/Medications Allergies: Coded Allergies: NO KNOWN ALLERGIES (04/02/16) Home Med list Albuterol Sulfate (Proair Hfa) 90 MCG HFA.AER.AD 2 PUF INH Q4-6 PRN PRN SHORTNESS OF BREATH (Reported) Amitriptyline HCl 100 MG TABLET 1 TAB PO QPM SLEEP HELP (Reported) Amoxicillin 500 MG CAPSULE 1 CAP PO TID SKIN INFECTION Aripiprazole (Abilify) 5 MG TABLET 1 TAB PO DAILY MOOD STABILITY (Reported) Bupropion HCl (Bupropion XL) 150 MG TAB.ER.24H 1 TAB PO DAILY MENTAL HEALTH ( Reported) Bupropion HCl (Bupropion XL) 300 MG TAB.ER.24H 1 TAB PO QAM DEPRESSION ( Reported) Cephalexin (Keflex) 500 MG CAPSULE 1 CAP PO TID abscess Cholecalciferol (Vitamin D3) 1,000 UNIT TABLET 1 TAB PO DAILY SUPPLEMENT ( Reported) Clonazepam 0.5 MG TABLET 1 TAB PO 1300 ANXIETY (Reported) Clonazepam 1 MG TABLET 1 TAB PO BID ANXIETY (Reported) Dicyclomine Hydrochloride (Bentyl) 10 MG CAPSULE 1 CAP PO TID IBS (Reported) Fluoxetine HCl 40 MG CAPSULE 1 CAP PO QAM MENTAL HEALTH (Reported) Fluticasone/Salmeterol (Advair 250-50 Diskus) 250 MCG-50 MCG/DOSE BLST.W.DEV 1 PUF INH BID BREATHING PROBLEMS (Reported) Gabapentin 300 MG CAPSULE 2 CAP PO TID Nerve Pain (Reported) Hydrochlorothiazide 12.5 MG TABLET 1 TAB PO DAILY WATER RETENTION (Reported) Hydrocodone/Acetaminophen ([place] 5-325 Tablet) 5 MG-325 MG TABLET 1-2 TAB PO Q6P PRN PAIN L-Methylfolate (Deplin-Algal Oil 15 MG Capsule) 15 MG-90.314 MG CAPSULE 1 CAP PO DAILY UNKNOWN (Reported) Multivitamin (One Daily Multivitamin) 1 EACH TABLET 1 TAB PO DAILY SUPPLEMENT (Reported) Oxycodone HCl 5 MG CAPSULE 1 CAP PO BIDP PRN Pain Oxycodone HCl/Acetaminophen (Percocet 5-325 MG Tablet) 5 MG-325 MG TABLET 1 TAB PO Q6P PRN pain Oxycodone HCl/Acetaminophen (Percocet 5-325 MG Tablet) 5 MG-325 MG TABLET 1 TAB PO BID pain Oxycodone HCl/Acetaminophen (Percocet 5-325 MG Tablet) 5 MG-325 MG TABLET 1 TAB PO BID PRN pain Pantoprazole Sodium (Protonix) 40 MG TABLET.DR 1 TAB PO DAILY ACID REFLUX ( Reported) Prednisolone Acetate 1 % DROPS.SUSP 1 GTT OD DAILY TRANSPLANT (Reported) Sulfamethoxazole/Trimethoprim (Bactrim Ds Tablet) 800 MG-160 MG TABLET 1 TAB PO BID abscess Sulfamethoxazole/Trimethoprim (Bactrim Ds Tablet) 800 MG-160 MG TABLET 1 TAB PO BID CELLULITIS RT BUTTOCK . Sulfamethoxazole/Trimethoprim (Bactrim Ds Tablet) 800 MG-160 MG TABLET 1 TAB PO BID abscess Past History Travel History Traveled to [place] past 21 day No Medical History Neurological: NONE EENT: keratoconus Respiratory: asthma, CHRISTY on cpap Gastrointestinal: GERD, irritable bowel syndrome Hepatic: NONE Renal: NONE Musculoskeletal: MRSA IN WOUND Psychiatric: anxiety, depression Endocrine: NONE Blood Disorders: NONE Cancer(s): NONE MILLER FIRST/Reproductive: NONE History of MRSA: No History of VRE: No History of CDIFF: No Surgical History Surgical History: carpal tunnel bilateral, right wrist cyst repair, removal of foreign body from ring finger, repair tendon of the ring finger, tendon release in ring finger, cyst on skull, benign tumor on butt, right foot bone spur and screw to fix decompression, cyst on right buttock, nerve decompression right leg , coronary transplant right eye, gastric bypass bariatric surgery, cataract surgery, hemorrhoidectomy Past Family/Social History Psychosocial History Who Do You Live With? parent Smoking Status: Never Smoked ETOH Use: occasional use Illicit Drug Use: denies illicit drug use Sexual History Sexually Active No (1 sexual partner 15 years ago) # of partners 1 Sexual Orientation Heterosexual Review of Systems Review of Systems Constitutional: Reports: fever. EENTM: Reports: visual changes. Cardiovascular: Denies: chest pain, edema, orthopena. Respiratory: Denies: short of breath, wheezing. GI: Denies: diarrhea, nausea, changes in stool, vomiting. Exam & Diagnostic Data Last 24 Hrs of Vital Signs/I&O Vital Signs Date Time Temp Pulse Resp B/P B/P Pulse O2 O2 Flow FiO2 Mean Ox Delivery Rate 09/20 0222 98.4 65 20 130/86 97 09/20 0152 97.1 74 22 128/79 98 09/19 2254 98.5 79 20 131/62 98 Room Air 09/19 2117 Room Air 09/19 1928 98.7 98 18 173/96 100 Room Air Room Air Intake & Output 09/20 0800 09/20 0000 09/19 1600 Intake Total Output Total Balance Patient 220 lb 220 lb Weight Weight Reported by Patient Reported by Patient Measurement Method Physical Exam General Appearance Alert, Oriented X3, Cooperative, patient standing due to pain when he sits on his rear Skin 1-1/2 inch diameter ererythematous indurationof his left buttock,extremely tender to touch, no area of fluctuation, scar noted on buttock due to prior removal of benign tumor HEENT Atraumatic, PERRLA, EOMI, CN2-12 intact, dry mucous membranes Neck Supple, no tracheal deviation, tenderness, or lymphadenopathy Cardiovascular Regular Rate, Normal S1, Normal S2, No Murmurs Lungs Clear to Auscultation, Normal Air Movement Abdomen Normal Bowel Sounds, Soft, No Tenderness Extremities No Edema, Normal Pulses Body Front and Back (Adult) 1) Last 24 Hrs of Labs/Travis: Laboratory Tests 09/19/162117: Anion Gap 14, Estimated GFR > 60, BUN/Creatinine Ratio 13.6, Glucose 91, Hemoglobin A1c Pending, Calcium 9.3, Total Bilirubin 0.4, AST 20, ALT 33, Alkaline Phosphatase 95, Total Protein 7.5, Albumin 4.3, Globulin 3.2, Albumin/ Globulin Ratio 1.3, CBC w Diff NO MAN DIFF REQ, RBC 4.49 L, MCV 89.0, MCH 30.2, RDW 13.8, MPV 7.5, Gran % 73.3, Lymphocytes % 18.4 L, Monocytes % 6.1, Eosinophils % 1.8, Basophils % 0.4, Absolute Granulocytes 7.4 H, Absolute Lymphocytes 1.9, Absolute Monocytes 0.6, Absolute Eosinophils 0.2, Absolute Basophils 0, PUBS MCHC 34.0 Microbiology 09/20 0115 BLOOD: Blood Culture - RECD 09/20 104 BLOOD: Blood Culture - RECD 09/21 39 BLOOD: Blood Culture - CAN Cancelled: Cancelled via OE: ORDERED INCORRECTLY 09/21 39 BLOOD: Blood Culture - CAN Cancelled: Quantity not sufficient for Aerobic blood culture bottle. Diagnostic Data Other Results PELVIS CT FINDINGS: PELVIS: There is no pelvic free fluid. Visualized unopacified loops of small and large bowel are unremarkable. The urinary bladder is partially filled and unremarkable. Again identified is soft tissue swelling within the subcutaneous tissues of the left buttock. This appears to be slightly more prominent than on the prior exam. There are no drainable fluid collections. There is no discernible fistulous tract. There are no pathologically enlarged pelvic or inguinal lymph nodes. There are scattered nonpathologically enlarged inguinal lymph nodes. OSSEOUS STRUCTURES: The visualized osseous structures are unremarkable. The lumbar vertebra are in normal alignment. IMPRESSION: Slight interval increase in degree of subcutaneous soft tissue swelling within the left buttock immediately lateral to the gluteal crease. No drainable fluid collection is demonstrable. Again, as stated on the prior report, pelvic MRI with contrast can provide for greater tissue detail. Assessment/Plan Assessment: The patient is a 35-year-old male with a past medical history of recurrent right buttock abscesses MRSA positive, pilondial cyst s/p excision, GERD, anxiety, depression, irritable bowel syndrome, sleep apnea, and keratoconus presenting with worsening pain and new drainage purulent drainage of his left buttock abscess despite I+D and antibiotic treatment. As Ranked By This Provider Problem List: 1. Abscess Assessment/Plan The patient has a history of recurrent right buttock abscesses MRSA positive, pilondial cyst s/p excision, presenting with worsening pain of his left buttock abscess. An I&D was performed on 09/16/16 and the patient was discharged with Keflex and Bactrim for 7 days. He returned to the emergency department on the due to worsening pain with palpation and movement but was discharged from the emergency department with instructions to continue his antibiotics. He has completed his antibiotics every day since the except today. Today, the patient noticed new bloody discharge of the abscess down his leg. His vitals were stable: T-98.6, RR 20, BP 131/62. White count was 10.1. Since he failed outpatient antibiotic therapy we will admit him for IV antibiotics. We will start him on IV Unasyn and vancomycin. We will consult surgery in the a.m. to see if they will attempt to drain the abscess despite CT showing no drainable abscess. We will control his pain with Tylenol, Percocet, and IV morphine. -Continue IV Unasyn and vancomycin. -consult surgery -Tylenol 650 mg po q6hrs prn pain scale 1-3, Percocet 1 tab mg po q6hrs prn pain scale 4-6, morphine 2 mg IV [id number] prn pain scale 7-10 2. Depression Assessment/Plan The patient reports a history of depression. We will continue him on his home medications. -Amitriptyline 100 mg po at bed time -Buproprion 150 + 300 mg po daily -Aripirazole 5 mg po daily -Fluoxetine 40 mg po daily 3. Anxiety Assessment/Plan Patient reports a history of anxiety. Will continue him on his home medication. -Clonazepam 1.0 +0.5 mg by mouth 4. Fluid retention Assessment/Plan Patient reports a history of water retention. We will continue him on his home medication. -Hydrochlorothiazide 12.5mg po daily 5. GERD (gastroesophageal reflux disease) Assessment/Plan Patient reports a history of GERD. We will continue him on his home medication. -Omeprazole 40 mg po daily 6. Neuropathic pain Assessment/Plan Patient reports a history of neuropathic pain in his leg. We will continue him on his home medication. -Gabapentin 600mg po q8 7. IBS (irritable bowel syndrome) Assessment/Plan Patient has a history of irritable bowel syndrome. We will continue him on his home medication. -Dicyclomine 10 mg po TID 8. Obstructive sleep apnea Assessment/Plan Patient reports a history of obstructive sleep apnea. We will continue him on his CPAP. -Continue CPAP 9. DVT prophylaxis Assessment/Plan Lovenox 10. Full code status Assessment/Plan Full code Core Measures/Miscellaneous Acute Coronary Syndrome ACS Diagnosis: No Cerebrovascular Accident CVA/TIA Diagnosis: No Congestive Heart Failure CHF Diagnosis: No VTE (View Protocol) VTE Risk Factors: Acute medical illness No [facility] VTE prophylaxis d/t: No contraindications No VTE Pharm Prophylaxis d/t: No contraindications VTE Diagnosis: No VTE Type: NONE VTE Confirmed by (Test): NONE Sepsis (View Protocol) Severe Sepsis Present: No Septic Shock Septic Shock Present: No Miscellaneous Documentation Attending Case Discussed With: VEGA MEYERS MD Primary Care Physician: SAVANNA SEALS Patient sees these Specialists Level of Patient Care: General Medicine KYLAH DUMONT,[facility] 09/20/16 0217: Resident Review Statement Resident Statement: examined this patient, discussed with video production intern, agreed with video production intern Other Findings: H: Mr. Alicia is a 35-year-old gentleman with past medical history of anxiety, depression,bariatric surgery (08/2014) multiple recurrent abscesses (mainly on the right buttock) requiring I&D's, who presented to the emergency department on 09/19/2016 complaining of worsening left inner thigh/perineum pain. He also states that the an abcess on the inside of his left thigh has been weeping and he noted blood discharged hours BALLASTER. Patient states he was last seen at the emergency department on 09/16 (where he underwent an I& D and was sent home on Kefelex and Bactrim) followed by a vist on 09/18 (complaining of recurrent pain), BALLASTER this evening. He was also seen in the ED on 08/31/2016 (sent home on Bactrim) and on 08/22/2016 (sent home on Amoxicillin TID and Bactrim BID) The patient states his abcessess normally resove after being incised, however states this abcess is indeed different in nature as it has not resolved. At the time of admission the patient states he is in pain. Pain was rated at an 11 out of 10. Described as throbbing. Patient is not currently sexually active. Patient's family history notable for basal cell carcinoma in both pulmonary further. He denies any IV drug use. Endorses occasional alcohol use. Patient's primary care physician is Dr. Bee. R: On review of systems the patient does endorse a fever up to 102.7 and subjective chills which began on Tuesday (09/17). He denies any chest pain or chest discomfort, palpitations, shortness of breath, wheezing, stool changes, nausea or vomiting, blood in stool or urinary symptoms. E HEENT: extraocular motion intact, no nystagmus. Pupils equally round and reactive to light and accommodation. Nose is atraumatic. External auditory canal and Tympanic membranes clear. Pharynx normal. No swelling or edema. Mucous membranes dry. Neck: Supple, no lymphadenopathy, normal range of motion without pain or tenderness Back: Nontender. Cardiovascular: Regular rate and rhythm no murmurs rubs or gallops. Respiratory: Chest nontender. Abdomen: Soft, tender with light palpation. nondistended, no appreciable organomegaly. Bowel sounds hyperactive. No ascites, no rebound or guarding. Rectal/Perineum: 4 X 3 cm area of induration. Extremely tender to touch. No discharge noted. No areas of fluctuation. Rectal tone WNL. Evidence of previous surgical scar on medial right buttock 5 cm in length. Extremity: No edema, no calf tenderness to palpation, normal and equal pulses. Neuro: Alert oriented to person and place,motor sensory normal, CN II to XII wnl. L: Labs at the time of dictation were notable for white cell count of 10.1. H&H 13.6 and 40.0 respectively. Platelets 264. I: IMPRESSION: CT PELVIS W IV CONTRAST Slight interval increase in degree of subcutaneous soft tissue swelling within the left buttock immediately lateral to the gluteal crease. No drainable fluid collection is demonstrable. Again, as stated on the prior report, pelvic MRI with contrast can provide for greater tissue detail. A Mr. Alicia is a 35-year-old gentleman with past medical history of anxiety, depression,bariatric surgery (08/2014) multiple recurrent abscesses (mainly on the right buttock) requiring I&D's, who presented to the emergency department on 09/19/2016 complaining of worsening left inner thigh/perineum pain. He also states that the an abcess on the inside of his left thigh has been weeping and he noted blood discharged hours BALLASTER. Assessment and plan. Problem List: Recurrent cellulitis/ Abcess History of mood disorders History of depression History of GERD History of nerve pain Will admit the patient to general medicine for IV antibiotics. IV Vancomycin 1500 Q12 IV Unasyn 1500 mg Q 6. Repeat CBC in a.m. HBA1C to rule out immmuno deficiency. Surgical consultation to be obtained to assess whether patient needs an additional I&D. May apply warm compresses to area for symptomatic relief. Encourage Ambulation Patient bathing with chlorhexidine has been shown to be useful for reducing MRSA colonization and infection Sitz Baths PRN. Continue CPAP for hx of CHRISTY Continue Home medications in AM. Pain with: Tylenol, Percocet, IV morphine Diet Regular DVT Prophylaxis: Lovenox. Patient is a full code LUIGI DUMONT, [facility] 09/20/16 0352: Attending MD Review Statement Attending Statement Attending MD Statement: examined this patient, discuss w/resident/PA/SKILLED NURSING FACILITIES PROFESSIONAL, agreed w/resident/PA/SKILLED NURSING FACILITIES PROFESSIONAL Attending Assessment/Plan: 35 yo M with h/o CHRISTY on CPAP, GERD, IBS, pilonidal cyst, recurrent MRSA abscess, anxiety, depression, morbid obesity s/p bariatric surgery (lost 140 lbs), recently treated for right buttock cellulitis (August 2016) with amoxicillin and bactrim is here for evaluation of left buttock cellulitis/ abscess after failing outpatient antibiotic therapy. Patient was seen in the ER on September 16 for left buttock abscess, I and D done and he was discharged on Keflex and Bactrim. He returned to ER on September 18 for worsening pain, he was reassured and asked to continue abx with Percocet/[place] for pain. He returns today September 19 for increasing bloody/ ?purulent discharge from the left buttock wound with increase in size, swelling and pain. Reports a fever of 102 at home. He reports compliance with antibiotics. He is not sure why he keeps getting recurrent abscesses. VSS. Labs: leukocytosis of 13 (09/18) is now resolved to 10.1. Pelvis CT: interval increase in degree of subcutaneous soft tissue swelling within left buttock immediately lateral to gluteal crease, no drainable fluid collection. 1. Left buttock cellulitis/ abscess s/p I and D done on August 17, failed outpatient antibiotic therapy. GM admit, cover with IV Unasyn and Vanco, warm soaks, obtain Surgery consult in AM. Pain management with IV morphine. Resume all home meds. Provide nocturnal CPAP. DVT ppx Lovenox. Full code.
--- NOTE | 2016-09-20 01:10 | NUR ---
PER MAISHA IN LAB 1ST SET BLUE TUBE QNS, 2ND SET ALREADY SENT SO THIRD SET WILL BE ORDERED. BUT WILL ONLY HAVE 2 SETS PENDING
--- NOTE | 2016-09-20 01:10 | NUR ---
PT'S RM ASSIGNMENT 214 BED 1
--- NOTE | 2016-09-20 01:13 | NUR ---
HOUSESTAFF AT BEDSIDE/.
--- NOTE | 2016-09-20 01:23 | NUR ---
2ND SET OF BLOOD CULTURES DRAWN AT 0105 ARE NOW 1ST SET DUE TO QNS OF ACTUAL FIRST SET. 3RD SET OF BLOOD CULTURES DRAWN AT 0115 ARE NOW 2ND SET OF BLOOD CULTURES.
--- NOTE | 2016-09-20 01:36 | NUR ---
RN TO CALL WHEN READY.
--- NOTE | 2016-09-20 01:51 | NUR ---
REPORT GIVEN PT REMAINS UNABLE TO SIT IN WC FOR TRANSPORT.
[2016-09-20 02:22] VITALS: BP 130/86
--- NOTE | 2016-09-20 03:53 | Admission Certification ---
Admission Certification Certification Statement - As attending physician, I certify that at the time of - admission, based on clinical presentation, severity of - symptoms, need for further diagnostic testing and - therapeutic interventions, and risk of adverse outcomes - without in-hospital treatment, in my clinical assessment, - this patient requires an acute hospital stay for a minimum - of two nights or longer. I have also considered psychsocial - factors such as support system, advanced age, financial - issues, cognitive issues, and failed out-patient treatments, - past re-admission history, safety of patient, and lack of - compliance as applicable. Specific rationale supporting this admission is: Left buttock cellulitis/ abscess, failed outpatient therapy.
[2016-09-20 06:46] VITALS: BP 112/78
--- NOTE | 2016-09-20 09:16 | PN- Housestaff ---
See Addendum Subjective Follow-up For: Abscess Subjective: He was admitted last. Still having L buttocks pain 10/14. He says this usually goes away after I&D at this time the pain and drainage did not go away. No other issues. Review of Systems Constitutional: Reports: no symptoms. EENTM: Reports: no symptoms. Cardiovascular: Reports: no symptoms. Respiratory: Reports: no symptoms. Gastrointestinal: Reports: no symptoms. Genitourinary: Reports: no symptoms. Musculoskeletal: Reports: see HPI. Skin: Reports: no symptoms. Neurological/Psychological: Reports: no symptoms. Hematologic/Endocrine: Reports: no symptoms. Immunologic/Allergic: Reports: no symptoms. Objective Last 24 Hrs of Vital Signs/I&O Vital Signs Date Time Temp Pulse Resp B/P B/P Pulse O2 O2 Flow FiO2 Mean Ox Delivery Rate 09/20 0646 97.6 58 20 112/78 98 09/20 0222 98.4 65 20 130/86 97 09/20 0152 97.1 74 22 128/79 98 09/19 2254 98.5 79 20 131/62 98 Room Air 09/19 2117 Room Air 09/19 1928 98.7 98 18 173/96 100 Room Air Room Air Intake & Output 09/20 1600 09/20 0800 09/20 0000 Intake Total 520 Output Total Balance 520 Intake, IV 20 Intake, Oral 500 Patient 220 lb 220 lb Weight Weight Reported by Patient Reported by Patient Measurement Method Physical Exam General Appearance: Alert, Oriented X3, Cooperative, No Acute Distress Skin: L buttocks with erythematous abscess and no drainage. Cardiovascular: Regular Rate, Normal S1, Normal S2 Lungs: Clear to Auscultation Abdomen: Normal Bowel Sounds, Soft, No Tenderness, No Masses Current Medications: Current Medications Sig/Vignesh Start time Last Medication Dose Route Stop Time Status Admin Acetaminophen 650 MG Q6P PRN 09/20 0215 AC PO Amitriptyline HCl 100 MG AT BEDTIME 09/20 2200 AC PO Ampicillin Sodium/ 1,500 MG Q6 09/20 0600 AC 09/20 Sulbactam Sodium IV 0557 Sodium Chloride 100 ML Aripiprazole 5 MG DAILY 09/20 1000 AC 09/20 PO 0925 Bupropion HCl 150 MG 1600 09/20 1600 AC PO Bupropion HCl 300 MG QAM 09/20 1000 AC 09/20 PO 0926 Cefazolin Sodium 0 .STK-MED ONE 09/20 0112 DC .ROUTE Cefazolin Sodium 1,000 MG ONCE ONE 09/20 0045 DC 09/20 IV 09/20 0046 0121 Clonazepam 0.5 MG 1300 09/20 1300 AC PO 09/27 1259 Clonazepam 1 MG BID 09/20 0212 AC 09/20 PO 09/27 0211 0925 Dicyclomine HCl 10 MG TID 09/20 0213 AC 09/20 PO 0926 Enoxaparin Sodium 40 MG DAILY 09/20 1000 AC 09/20 SC 0927 Fluoxetine HCl 40 MG DAILY 09/20 1000 AC 09/20 PO 0926 Gabapentin 600 MG Q8 09/20 0600 AC 09/20 PO 0558 Hydrochlorothiazide 12.5 MG DAILY 09/20 1000 AC 09/20 PO 0925 Hydromorphone HCl 0 .STK-MED ONE 09/19 2110 DC .ROUTE Hydromorphone HCl 2 MG ONCE ONE 09/19 2100 DC 09/19 IM 09/19 2101 2106 Morphine Sulfate 4 MG ONCE ONE 09/20 1000 DC 09/20 IV 09/20 1001 1037 Morphine Sulfate 2 MG Q4P PRN 09/20 0215 AC IV Omeprazole 40 MG DAILY AC 09/20 0700 AC 09/20 PO 0558 Oxycodone/ 2 TAB Q6P PRN 09/20 1000 AC Acetaminophen PO Oxycodone/ 1 TAB Q6P PRN 09/20 0215 DC 09/20 Acetaminophen PO 0416 Sodium Chloride 1,000 ML Q13H 09/20 0215 DC IV Vancomycin HCl 1,500 MG Q12H 09/20 1200 AC Sodium Chloride 250 ML IV Vancomycin HCl 0 .STK-MED ONE 09/20 011 DC .ROUTE Vancomycin HCl 1,000 MG ONCE ONE 09/20 0045 DC 09/20 Sodium Chloride 250 ML IV 09/20 0144 0121 Last 24 Hrs of Lab/Travis Results Last 24 Hrs of Labs/Mics: Laboratory Tests 09/20/16 0803: Anion Gap 14, Estimated GFR > 60, BUN/Creatinine Ratio 12.7, CBC w Diff NO MAN DIFF REQ, RBC 4.39 L, MCV 90.1, MCH 30.2, RDW 14.0, MPV 8.0, Gran % 70.5, Lymphocytes % 20.5, Monocytes % 6.4, Eosinophils % 2.3, Basophils % 0.3, Absolute Granulocytes 6.5, Absolute Lymphocytes 1.9, Absolute Monocytes 0.6, Absolute Eosinophils 0.2, Absolute Basophils 0, PUBS MCHC 33.5 09/19/162117: Anion Gap 14, Estimated GFR > 60, BUN/Creatinine Ratio 13.6, Glucose 91, Hemoglobin A1c 4.8, Calcium 9.3, Total Bilirubin 0.4, AST 20, ALT 33, Alkaline Phosphatase 95, Total Protein 7.5, Albumin 4.3, Globulin 3.2, Albumin/Globulin Ratio 1.3, CBC w Diff NO MAN DIFF REQ, RBC 4.49 L, MCV 89.0, MCH 30.2, RDW 13.8 , MPV 7.5, Gran % 73.3, Lymphocytes % 18.4 L, Monocytes % 6.1, Eosinophils % 1.8, Basophils % 0.4, Absolute Granulocytes 7.4 H, Absolute Lymphocytes 1.9, Absolute Monocytes 0.6, Absolute Eosinophils 0.2, Absolute Basophils 0, PUBS MCHC 34.0 Microbiology 09/20 114 BLOOD: Blood Culture - RECD 09/20 104 BLOOD: Blood Culture - RECD 09/21 39 BLOOD: Blood Culture - CAN Cancelled: Cancelled via OE: ORDERED INCORRECTLY 09/21 39 BLOOD: Blood Culture - CAN Cancelled: Quantity not sufficient for Aerobic blood culture bottle. Assessment/Plan Assessment: The patient is a 35-year-old male with a past medical history of recurrent right buttock abscesses MRSA positive, pilondial cyst s/p excision, GERD, anxiety, depression, irritable bowel syndrome, sleep apnea, and keratoconus presenting with worsening pain and new drainage purulent drainage of his left buttock abscess despite I+D and antibiotic treatment. #Left buttock abscess: He spiked a fever at home but has remained afebrile here. Is currently not draining. Pelvic CT showed increased swelling but no drainable fluid. We will have surgery come see him and continue him on antibiotics. -Continue IV Unasyn and vancomycin. -consult surgery -Tylenol 650 mg po q6hrs prn pain scale 1-3, Percocet 2 tab mg po q6hrs prn pain scale 4-6, morphine 2 mg IV [id number] prn pain scale 7-10 #Chronic medical problems: Depression, anxiety, fluid retention, GERD, neuropathic pain, BS -Amitriptyline 100 mg po at bed time -Buproprion 150 + 300 mg po -Aripirazole 5 mg po daily -Fluoxetine 40 mg po daily -Clonazepam 1.0 +0.5 mg by mouth -Hydrochlorothiazide 12.5mg po daily -Omeprazole 40 mg po daily -Gabapentin 600mg po q8 -Dicyclomine 10 mg po TID DVT prophylaxis Lovenox Full code Problem List: 1. Abscess Pain Ratin Pain Location: L buttocks Pain Goal: Remain pain free Pain Plan: see a/p Tomorrow's Labs & Rationales: cbc, bep
[2016-09-20 09:39] LABS: ABSOLUTE BASOPHIL COUNT 0 /CUMM (0.0-0.2); ABSOLUTE EOSINOPHIL COUNT 0.2 /CUMM (0.0-0.7); ABSOLUTE GRANULOCYTE CT 6.5 /CUMM (1.4-6.5); ABSOLUTE LYMPH COUNT 1.9 /CUMM (1.2-3.4); ABSOLUTE MONOCYTE COUNT 0.6 /CUMM (0.10-0.60); BASOPHIL % 0.3 % (0.0-2.0); EOSINOPHIL % 2.3 % (0-5); GRANULOCYTE % 70.5 % (42.2-75.2); HEMATOCRIT 39.6 % (42-52); MEAN CORPUSCULAR HGB 30.2 PG (27.0-31.0); MEAN CORPUSCULAR HGB CONC 33.5 G/DL (33.0-37.0); MEAN CORPUSCULAR VOLUME 90.1 FL (80.0-94.0); PLATELET COUNT 270 /CUMM (130-400); RED BLOOD CELL CT 4.39 /CUMM (4.70-6.10); WHITE BLOOD CELL COUNT 9.3 /CUMM (4.8-10.8)
--- NOTE | 2016-09-20 14:47 | Discharge Summary ---
See Addendum Visit Information Visit Dates Admission Date: 09/20/16 Discharge Date: 09/22/16 Hospital Course Course Attending Physician: JOSE MEYERS MDLennie Primary Care Physician: SAVANNA SEALS Hospital Course: The patient is a 35-year-old male with a past medical history of recurrent right buttock abscesses MRSA positive, pilondial cyst s/p excision, GERD, anxiety, depression, irritable bowel syndrome, sleep apnea, and keratoconus presenting with worsening pain and new drainage purulent drainage of his left buttock abscess despite I+D and antibiotic treatment. In the emergency department, his vital signs are stable with no leukocytosis. He was admitted to general medicine due to failure of outpatient antibiotic therapy. #Left buttock cellulitis: Despite reporting a fever at home, he was never febrile in the hospital. He had no leukocytosis as well. Exam revealed a 1-1/2 inch diameter erythematous area on his left buttock that was extremely tender to touch but with no fluctuation or discharge. He was started on IV Unasyn and vancomycin because he failed outpatient antibiotic therapy. Pelvic CT showed increased swelling but no drainable fluid. Surgery was consulted and they recommended no surgery at this time. He should follow-up with surgery in one week. He should also continue to take oral clindamycin for 7 more days. If he develops fever or worsening pain, he should follow-up sooner. #Chronic medical problems: Depression, anxiety, fluid retention, GERD, neuropathic pain, IBS: The following medications were continued: -Amitriptyline 100 mg po at bed time -Buproprion 150 + 300 mg po -Aripirazole 5 mg po daily -Fluoxetine 40 mg po daily -Clonazepam 1.0 +0.5 mg by mouth -Hydrochlorothiazide 12.5mg po daily -Omeprazole 40 mg po daily -Gabapentin 600mg po q8 -Dicyclomine 10 mg po TID Allergies: Coded Allergies: NO KNOWN ALLERGIES (04/02/16) Disposition Summary Disposition Principal Diagnosis: Left buttock cellulitis Additional Diagnosis: No other acute medical issues. Discharge Disposition: home or self care Discharge Instructions General Discharge Information Code Status: Full Code Patient's Diet: Regular diet Patient's Activity: As tolerated Follow-Up Instructions/Appts: Please follow up with surgery, Med Correa MD in 1-2 days. Please follow- up with your PCP in 1-2 weeks. Please take all medications as directed. Medications at Discharge Discharge Medications: Stop taking the following medications: Oxycodone HCl (Oxycodone HCl) 5 MG CAPSULE ORAL 2 x Daily as needed as needed for Pain Qty = 6 Sulfamethoxazole/Trimethoprim (Bactrim Ds Tablet) 800 MG-160 MG TABLET ORAL TWICE DAILY Qty = 14 Oxycodone HCl/Acetaminophen (Percocet 5-325 MG Tablet) 5 MG-325 MG TABLET ORAL EVERY SIX HOURS NEEDED as needed for pain Qty = 10 Amoxicillin (Amoxicillin) 500 MG CAPSULE ORAL THREE TIMES DAILY Qty = 21 Oxycodone HCl/Acetaminophen (Percocet 5-325 MG Tablet) 5 MG-325 MG TABLET ORAL TWICE DAILY Qty = 10 Sulfamethoxazole/Trimethoprim (Bactrim Ds Tablet) 800 MG-160 MG TABLET ORAL TWICE DAILY Qty = 14 Cephalexin (Keflex) 500 MG CAPSULE ORAL THREE TIMES DAILY Qty = 21 Sulfamethoxazole/Trimethoprim (Bactrim Ds Tablet) 800 MG-160 MG TABLET ORAL TWICE DAILY Qty = 14 Oxycodone HCl/Acetaminophen (Percocet 5-325 MG Tablet) 5 MG-325 MG TABLET ORAL TWICE DAILY as needed for pain Qty = 10 Hydrocodone/Acetaminophen ([place] 5-325 Tablet) 5 MG-325 MG TABLET ORAL EVERY SIX HOURS NEEDED as needed for PAIN Qty = 20 Continue taking these medications: Clonazepam (Clonazepam) 1 MG TABLET 1 Tablet ORAL TWICE DAILY Comments: Last Taken: 09/22/16 Time: 9:45 AM Clonazepam (Clonazepam) 0.5 MG TABLET 1 Tablet ORAL 1300 Comments: Last Taken: 09/21/16 Time: 12:00 PM Albuterol Sulfate (Proair Hfa) 90 MCG HFA.AER.AD 2 Puff Inhale through mouth EVERY 4-6 HOURS NEEDED as needed for SHORTNESS OF BREATH Comments: NOT GIVEN IN HOSPITAL Dicyclomine Hydrochloride (Bentyl) 10 MG CAPSULE 1 Capsule ORAL THREE TIMES DAILY Comments: Last Taken: 09/22/16 Time: 9:45 AM Aripiprazole (Abilify) 5 MG TABLET 1 Tablet ORAL DAILY Comments: Last Taken: 09/22/16 Time: 9:45 AM Pantoprazole Sodium (Protonix) 40 MG TABLET.DR 1 Tablet ORAL DAILY Comments: Last Taken: 09/22/16 Time: 6:00 AM (PRILOSEC 40MG PO GIVEN) Hydrochlorothiazide (Hydrochlorothiazide) 12.5 MG TABLET 1 Tablet ORAL DAILY Comments: Last Taken: 09/22/16 Time: 9:45 AM Amitriptyline HCl (Amitriptyline HCl) 100 MG TABLET 1 Tablet ORAL Every night Comments: Last Taken: 09/21/16 Time: 9:00 PM Multivitamin (One Daily Multivitamin) 1 EACH TABLET 1 Tablet ORAL DAILY Comments: NOT GIVEN IN HOSPITAL Cholecalciferol (Vitamin D3) 1,000 UNIT TABLET 1 Tablet ORAL DAILY Comments: NOT GIVEN IN HOSPITAL Bupropion HCl (Bupropion XL) 300 MG TAB.ER.24H 1 Tablet ORAL Every Morning Qty = 90 Comments: Last Taken: 09/22/16 Time: 9:45 AM L-Methylfolate (Deplin-Algal Oil 15 MG Capsule) 15 MG-90.314 MG CAPSULE 1 Capsule ORAL DAILY Comments: NOT GIVEN IN HOSPITAL Bupropion HCl (Bupropion XL) 150 MG TAB.ER.24H 1 Tablet ORAL DAILY Qty = 90 Comments: Last Taken: 09/21/16 Time: 4:00 PM Fluticasone/Salmeterol (Advair 250-50 Diskus) 250 MCG-50 MCG/DOSE BLST.W.DEV 1 Puff Inhale through mouth TWICE DAILY Qty = 60 Comments: NOT GIVEN IN HOSPITAL Fluoxetine HCl (Fluoxetine HCl) 40 MG CAPSULE 1 Capsule ORAL Every Morning Qty = 90 Comments: Last Taken: 09/22/16 Time: 9:45 AM Gabapentin (Gabapentin) 300 MG CAPSULE 2 Capsule ORAL THREE TIMES DAILY Qty = 30 Comments: Last Taken: 09/22/16 Time: 6:00 AM Prednisolone Acetate (Prednisolone Acetate) 1 % DROPS.SUSP 1 Drop Right Eye DAILY Qty = 5 Comments: NOT GIVEN IN HOSPITAL Start taking the following new medications: Clindamycin HCl (Cleocin HCl) 300 MG CAPSULE 1 Capsule ORAL 4 TIMES A DAY Qty = 24 No Refills Instructions: Please take as directed. Comments: NOT GIVEN IN HOSPITAL Oxycodone HCl/Acetaminophen (Percocet 5-325 MG Tablet) 5 MG-325 MG TABLET 2 Tablet ORAL 4 times daily as needed as needed for PAIN Qty = 24 No Refills Instructions: Take as directed Copies To: BO MENDOZA,SAVANNA Bhardwaj; KENNETH DUMONT,MED Marie Attending MD Review Statement Documenting Attending: MAGDALENA DUMONT,SURJIT
[2016-09-20 14:51] VITALS: BP 118/80
--- NOTE | 2016-09-20 17:32 | Cons- General Surgery ---
General Information and HPI Consulting Request Date of Consult: 09/20/16 Requested By: LUIGI DUMONT,VEGA History of Present Illness: CC: Buttock abscess HPI: Patient is a 35-year-old known to our practice who just recently did a hemorrhoidectomy on him the PFSH and ROS were reviewed and have not changed significantly since the original office visit on 07/01/2016, unless stated . He is not diabetic, nonsmoker. More recently he had a right buttock abscess that I drained in the office on it came back MRSA. Now has been admitted admitted to medicine for IV antibiotics with another buttock abscess this time on the other side which he says he usually doesn't get but otherwise he's been getting these buttock abscesses for years. The one that was lanced in the office has improved this new 1 started about a week ago denies any fevers its tender he went to the ER for it a few times before being admitted. Otherwise his hemorrhoidectomy is not causing him any trouble, no changes in bowel habits weight or appetite. Allergies/Medications Allergies: Coded Allergies: NO KNOWN ALLERGIES (04/02/16) Home Med List: Albuterol Sulfate (Proair Hfa) 90 MCG HFA.AER.AD 2 PUF INH Q4-6 PRN PRN SHORTNESS OF BREATH (Reported) Amitriptyline HCl 100 MG TABLET 1 TAB PO QPM SLEEP HELP (Reported) Amoxicillin 500 MG CAPSULE 1 CAP PO TID SKIN INFECTION Aripiprazole (Abilify) 5 MG TABLET 1 TAB PO DAILY MOOD STABILITY (Reported) Bupropion HCl (Bupropion XL) 150 MG TAB.ER.24H 1 TAB PO DAILY MENTAL HEALTH ( Reported) Bupropion HCl (Bupropion XL) 300 MG TAB.ER.24H 1 TAB PO QAM DEPRESSION ( Reported) Cephalexin (Keflex) 500 MG CAPSULE 1 CAP PO TID abscess Cholecalciferol (Vitamin D3) 1,000 UNIT TABLET 1 TAB PO DAILY SUPPLEMENT ( Reported) Clindamycin HCl (Cleocin HCl) 300 MG CAPSULE 1 CAP PO 4 TIMES/DAY SKin infection Please take as directed Clonazepam 0.5 MG TABLET 1 TAB PO 1300 ANXIETY (Reported) Clonazepam 1 MG TABLET 1 TAB PO BID ANXIETY (Reported) Dicyclomine Hydrochloride (Bentyl) 10 MG CAPSULE 1 CAP PO TID IBS (Reported) Fluoxetine HCl 40 MG CAPSULE 1 CAP PO QAM MENTAL HEALTH (Reported) Fluticasone/Salmeterol (Advair 250-50 Diskus) 250 MCG-50 MCG/DOSE BLST.W.DEV 1 PUF INH BID BREATHING PROBLEMS (Reported) Gabapentin 300 MG CAPSULE 2 CAP PO TID Nerve Pain (Reported) Hydrochlorothiazide 12.5 MG TABLET 1 TAB PO DAILY WATER RETENTION (Reported) Hydrocodone/Acetaminophen ([place] 5-325 Tablet) 5 MG-325 MG TABLET 1-2 TAB PO Q6P PRN PAIN L-Methylfolate (Deplin-Algal Oil 15 MG Capsule) 15 MG-90.314 MG CAPSULE 1 CAP PO DAILY UNKNOWN (Reported) Multivitamin (One Daily Multivitamin) 1 EACH TABLET 1 TAB PO DAILY SUPPLEMENT (Reported) Oxycodone HCl 5 MG CAPSULE 1 CAP PO BIDP PRN Pain Oxycodone HCl/Acetaminophen (Percocet 5-325 MG Tablet) 5 MG-325 MG TABLET 1 TAB PO Q6P PRN pain Oxycodone HCl/Acetaminophen (Percocet 5-325 MG Tablet) 5 MG-325 MG TABLET 1 TAB PO BID pain Oxycodone HCl/Acetaminophen (Percocet 5-325 MG Tablet) 5 MG-325 MG TABLET 1 TAB PO BID PRN pain Pantoprazole Sodium (Protonix) 40 MG TABLET.DR 1 TAB PO DAILY ACID REFLUX ( Reported) Prednisolone Acetate 1 % DROPS.SUSP 1 GTT OD DAILY TRANSPLANT (Reported) Sulfamethoxazole/Trimethoprim (Bactrim Ds Tablet) 800 MG-160 MG TABLET 1 TAB PO BID abscess Sulfamethoxazole/Trimethoprim (Bactrim Ds Tablet) 800 MG-160 MG TABLET 1 TAB PO BID CELLULITIS RT BUTTOCK . Sulfamethoxazole/Trimethoprim (Bactrim Ds Tablet) 800 MG-160 MG TABLET 1 TAB PO BID abscess Current Medications: I reviewed Current Medications Sig/Vignesh Start time Last Medication Dose Route Stop Time Status Admin Acetaminophen 650 MG Q6P PRN 09/20 0215 AC PO Amitriptyline HCl 100 MG AT BEDTIME 09/20 2200 AC PO Ampicillin Sodium/ 1,500 MG Q6 09/20 0600 AC 09/20 Sulbactam Sodium IV 1145 Sodium Chloride 100 ML Aripiprazole 5 MG DAILY 09/20 1000 AC 09/20 PO 0925 Bupropion HCl 150 MG 1600 09/20 1600 AC 09/20 PO 1617 Bupropion HCl 300 MG QAM 09/20 1000 AC 09/20 PO 0926 Cefazolin Sodium 0 .STK-MED ONE 09/20 0112 DC .ROUTE Cefazolin Sodium 1,000 MG ONCE ONE 09/20 0045 DC 09/20 IV 09/20 0046 0121 Clonazepam 0.5 MG 1300 09/20 1300 AC 09/20 PO 09/27 1259 1241 Clonazepam 1 MG BID 09/20 0212 AC 09/20 PO 09/27 0211 0925 Dicyclomine HCl 10 MG TID 09/20 0213 AC 09/20 PO 1617 Enoxaparin Sodium 40 MG DAILY 09/20 1000 AC 09/20 SC 0927 Fluoxetine HCl 40 MG DAILY 09/20 1000 AC 09/20 PO 0926 Gabapentin 600 MG Q8 09/20 0600 AC 09/20 PO 1410 Hydrochlorothiazide 12.5 MG DAILY 09/20 1000 AC 09/20 PO 0925 Hydromorphone HCl 0 .STK-MED ONE 09/19 2110 DC .ROUTE Hydromorphone HCl 2 MG ONCE ONE 09/19 2100 DC 09/19 IM 09/19 2101 2106 Morphine Sulfate 4 MG ONCE ONE 09/20 1000 DC 09/20 IV 09/20 1001 1037 Morphine Sulfate 2 MG Q4P PRN 09/20 0215 AC IV Omeprazole 40 MG DAILY AC 09/20 0700 AC 09/20 PO 0558 Oxycodone/ 2 TAB Q6P PRN 09/20 1000 AC 09/20 Acetaminophen PO 1457 Oxycodone/ 1 TAB Q6P PRN 09/20 0215 DC 09/20 Acetaminophen PO 0416 Patient Medication 1 ED .STK-MED ONE 09/20 1409 DC Teaching ED 09/20 1410 Sodium Chloride 1,000 ML Q13H 09/20 0215 DC IV Vancomycin HCl 1,500 MG Q12H 09/20 1200 AC 09/20 Sodium Chloride 250 ML IV 1241 Vancomycin HCl 0 .STK-MED ONE 09/20 0112 DC .ROUTE Vancomycin HCl 1,000 MG ONCE ONE 09/20 0045 DC 09/20 Sodium Chloride 250 ML IV 09/20 0144 0121 Past History Medical History Blood Transfusion Hx: No Neurological: NONE EENT: keratoconus Respiratory: asthma, CHRISTY on cpap Gastrointestinal: GERD, irritable bowel syndrome Hepatic: NONE Renal: NONE Musculoskeletal: MRSA IN WOUND Psychiatric: anxiety, depression Endocrine: NONE Blood Disorders: NONE Cancer(s): NONE 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 Home Who Do You Live With? parent Services at Home: None Smoking Status: Never Smoked ETOH Use: occasional use Illicit Drug Use: denies illicit drug use Review of Systems Review of Systems: As above Exam & Diagnostic Data Vital Signs and I&O I reviewed Vital Signs Date Time Temp Pulse Resp B/P B/P Pulse O2 O2 Flow FiO2 Mean Ox Delivery Rate 09/20 1451 97.7 64 20 118/80 99 Room Air 09/20 0646 97.6 58 20 112/78 98 09/20 0222 98.4 65 20 130/86 97 09/20 0152 97.1 74 22 128/79 98 09/19 2254 98.5 79 20 131/62 98 Room Air 09/19 2117 Room Air 09/19 1928 98.7 98 18 173/96 100 Room Air Room Air I reviewed Intake & Output 09/20 1600 09/20 0800 09/20 0000 09/19 1600 09/19 0800 09/19 0000 Intake Total 960 520 Output Total Balance 960 520 Intake, IV 20 Intake, Oral 960 500 Patient 220 lb 220 lb Weight Weight Reported by Patient Reported by Patient Measurement Method Physical Exam: Constitutional: pleasant, no acute distress, conversant Eyes: sclera anicteric ENMT: ears and nose atraumatic, moist mucous membranes, good dentition, no lip lesions Neck: Supple, trachea is midline, no cervical or supraclavicular adenopathy and no palpable thyromegaly Cardiovascular: S1, S2, no murmurs, no peripheral edema Respiratory: clear to auscultation with normal respiratory effort and no intercostal retractions GI: abdomen soft, nontender, nondistended, no palpable hepatosplenomegaly Extremities / lymphatics: symmetrically warm, free range of motion no peripheral edema, no cervical, supraclavicular, axillary, or inguinal adenopathy Musculoskeletal: Normal gait and station, no digital cyanosis, good muscle strength and tone no atrophy, motor grossly 5 out of 5 throughout Skin: no jaundice, no rashes warm, nondiaphoretic, on his left buttock there is an I&D healing site no erythema on the right buttock little lower is a pale thickening its tender there is no necrosis no induration no bright erythema it's about 4 cm x 2.5 cm you can gently pinching it's not deep it's not draining Psychiatric: mood and affect are appropriate and alert and oriented to person place and time Last 24 Hours of Labs: I reviewed Laboratory Tests 09/20 09/19 0803 2118 Chemistry Sodium (137 - 145 mmol/L) 140 143 Potassium (3.5 - 5.1 mmol/L) 4.2 4.1 Chloride (98 - 107 mmol/L) 101 102 Carbon Dioxide (22 - 30 mmol/L) 25 26 Anion Gap (5 - 16) 14 14 BUN (9 - 20 mg/dL) 14 15 Creatinine (0.7 - 1.2 mg/dL) 1.1 1.1 Estimated GFR (>60 ml/min) > 60 > 60 BUN/Creatinine Ratio (7 - 25 %) 12.7 13.6 Glucose (65 - 99 mg/dL) 91 Hemoglobin A1c (4.2 - 5.8 %) 4.8 Calcium (8.4 - 10.2 mg/dL) 9.3 Iron (49 - 181 ug/dL) 74 TIBC (261 - 462 ug/dL) 352 Ferritin (17.9 - 464 ng/mL) 87.0 Total Bilirubin (0.2 - 1.3 mg/dL) 0.4 AST (17 - 59 U/L) 20 ALT (21 - 72 U/L) 33 Alkaline Phosphatase (< 127 U/L) 95 Total Protein (6.3 - 8.2 g/dL) 7.5 Albumin (3.5 - 5.0 g/dL) 4.3 Globulin (1.9 - 4.2 gm/dL) 3.2 Albumin/Globulin Ratio (1.1 - 2.2 %) 1.3 Hematology CBC w Diff NO MAN DIFF REQ NO MAN DIFF REQ WBC (4.8 - 10.8 /CUMM) 9.3 10.1 RBC (4.70 - 6.10 /CUMM) 4.39 L 4.49 L Hgb (14.0 - 18.0 G/DL) 13.3 L 13.6 L Hct (42 - 52 %) 39.6 L 40.0 L MCV (80.0 - 94.0 FL) 90.1 89.0 MCH (27.0 - 31.0 PG) 30.2 30.2 RDW (11.5 - 14.5 %) 14.0 13.8 Plt Count (130 - 400 /CUMM) 270 264 MPV (7.4 - 10.4 FL) 8.0 7.5 Gran % (42.2 - 75.2 %) 70.5 73.3 Lymphocytes % (20.5 - 51.1 %) 20.5 18.4 L Monocytes % (1.7 - 9.3 %) 6.4 6.1 Eosinophils % (0 - 5 %) 2.3 1.8 Basophils % (0.0 - 2.0 %) 0.3 0.4 Absolute Granulocytes (1.4 - 6.5 /CUMM) 6.5 7.4 H Absolute Lymphocytes (1.2 - 3.4 /CUMM) 1.9 1.9 Absolute Monocytes (0.10 - 0.60 /CUMM) 0.6 0.6 Absolute Eosinophils (0.0 - 0.7 /CUMM) 0.2 0.2 Absolute Basophils (0.0 - 0.2 /CUMM) 0 0 PUBS MCHC (33.0 - 37.0 G/DL) 33.5 34.0 Assessment/Plan Assessment/Plan Studies I reviewed the admission CT scan on PACS myself there is no obvious fluid collection there on the edge of the left buttock and looks very superficial and a correlate with the physical exam Impression is left buttock cellulitis with a long history of MRSA infections even 13 weeks ago I recommend coverage for MRSA from a surgical perspective I don't feel he would benefit from an incision here there is no signs of abscess, so an incision would not be very productive, I would wait to see how this develops, especially given his history. Problem List: 1. Cellulitis Consult Acknowledgment - Thank you for your consult request.
[2016-09-20 22:32] VITALS: BP 112/72
[2016-09-21 06:21] VITALS: BP 120/72
--- NOTE | 2016-09-21 07:17 | PN- Housestaff ---
See Addendum Subjective Follow-up For: L buttock abscess Subjective: No over night events. He slept well. He says pain is 8/10 in buttocks. He has no other complaints. Review of Systems Constitutional: Reports: no symptoms. EENTM: Reports: no symptoms. Cardiovascular: Reports: no symptoms. Respiratory: Reports: no symptoms. Gastrointestinal: Reports: no symptoms. Genitourinary: Reports: no symptoms. Musculoskeletal: Reports: no symptoms. Skin: Reports: see HPI. Neurological/Psychological: Reports: no symptoms. Hematologic/Endocrine: Reports: no symptoms. Immunologic/Allergic: Reports: no symptoms. Objective Last 24 Hrs of Vital Signs/I&O Vital Signs Date Time Temp Pulse Resp B/P B/P Pulse O2 O2 Flow FiO2 Mean Ox Delivery Rate 09/21 620 98.0 41 20 120/72 98 Room Air 09/20 2232 97.7 57 20 112/72 97 09/20 1451 97.7 64 20 118/80 99 Room Air Intake & Output 09/21 0800 09/21 0000 09/20 1600 Intake Total 500 960 Output Total Balance 500 960 Intake, IV 500 Intake, Oral 960 Physical Exam General Appearance: Alert, Oriented X3, Cooperative, No Acute Distress Skin: L buttock erythema with no discharge Cardiovascular: Regular Rate, Normal S1, Normal S2 Lungs: Clear to Auscultation Abdomen: Normal Bowel Sounds, Soft, No Tenderness, No Masses Extremities: No Edema Current Medications: Current Medications Sig/Vignesh Start time Last Medication Dose Route Stop Time Status Admin Acetaminophen 650 MG Q6P PRN 09/20 0215 AC PO Amitriptyline HCl 100 MG AT BEDTIME 09/20 2200 AC 09/20 PO 2131 Ampicillin Sodium/ 1,500 MG Q6 09/20 0600 AC 09/21 Sulbactam Sodium IV 0549 Sodium Chloride 100 ML Aripiprazole 5 MG DAILY 09/20 1000 AC 09/20 PO 0925 Bupropion HCl 150 MG 1600 09/20 1600 AC 09/20 PO 1617 Bupropion HCl 300 MG QAM 09/20 1000 AC 09/20 PO 0926 Clonazepam 0.5 MG 1300 09/20 1300 AC 09/20 PO 09/27 1259 1241 Clonazepam 1 MG BID 09/20 0212 AC 09/20 PO 09/27 0211 2130 Dicyclomine HCl 10 MG TID 09/20 0213 AC 09/20 PO 2131 Enoxaparin Sodium 40 MG DAILY 09/20 1000 AC 09/20 SC 0927 Fluoxetine HCl 40 MG DAILY 09/20 1000 AC 09/20 PO 0926 Gabapentin 600 MG Q8 09/20 0600 AC 09/21 PO 0550 Hydrochlorothiazide 12.5 MG DAILY 09/20 1000 AC 09/20 PO 0925 Morphine Sulfate 4 MG ONCE ONE 09/20 1000 DC 09/20 IV 09/20 1001 1037 Morphine Sulfate 2 MG Q4P PRN 09/20 0215 AC 09/21 IV 0259 Omeprazole 40 MG DAILY AC 09/20 0700 AC 09/21 PO 0549 Oxycodone/ 2 TAB Q6P PRN 09/20 1000 AC 09/21 Acetaminophen PO 0550 Oxycodone/ 1 TAB Q6P PRN 09/20 0215 DC 09/20 Acetaminophen PO 0416 Patient Medication 1 ED .STK-MED ONE 09/20 1409 IA Teaching ED 09/20 1410 Vancomycin HCl 1,500 MG Q12H 09/20 1200 AC 09/21 Sodium Chloride 250 ML IV 0030 Last 24 Hrs of Lab/Travis Results Last 24 Hrs of Labs/Mics: Laboratory Tests 09/20/16 0803: Anion Gap 14, Estimated GFR > 60, BUN/Creatinine Ratio 12.7, Iron 74, TIBC 352, Ferritin 87.0, CBC w Diff NO MAN DIFF REQ, RBC 4.39 L, MCV 90.1, MCH 30.2, RDW 14.0, MPV 8.0, Gran % 70.5, Lymphocytes % 20.5, Monocytes % 6.4, Eosinophils % 2.3, Basophils % 0.3, Absolute Granulocytes 6.5, Absolute Lymphocytes 1.9, Absolute Monocytes 0.6, Absolute Eosinophils 0.2, Absolute Basophils 0, PUBS MCHC 33.5 Assessment/Plan Assessment: The patient is a 35-year-old male with a past medical history of recurrent right buttock abscesses MRSA positive, pilondial cyst s/p excision, GERD, anxiety, depression, irritable bowel syndrome, sleep apnea, and keratoconus presenting with worsening pain and new drainage purulent drainage of his left buttock abscess despite I+D and antibiotic treatment. #Left buttock abscess: Pelvic CT showed increased swelling but no drainable fluid. He did well overnight. Surgery has not recommended any change in management. He can likely go home on antibiotics. -Continue IV Unasyn and vancomycin. Consider switching to oral coverage for discharge. -consult surgery, appreciate recommendations -Tylenol 650 mg po q6hrs prn pain scale 1-3, Percocet 2 tab mg po q6hrs prn pain scale 4-6, morphine 2 mg IV [id number] prn pain scale 7-10 #Chronic medical problems: Depression, anxiety, fluid retention, GERD, neuropathic pain, BS -Amitriptyline 100 mg po at bed time -Buproprion 150 + 300 mg po -Aripirazole 5 mg po daily -Fluoxetine 40 mg po daily -Clonazepam 1.0 +0.5 mg by mouth -Hydrochlorothiazide 12.5mg po daily -Omeprazole 40 mg po daily -Gabapentin 600mg po q8 -Dicyclomine 10 mg po TID DVT prophylaxis Lovenox Full code Problem List: 1. Abscess Pain Ratin Pain Location: l buttock Pain Goal: Remain pain free Pain Plan: see a/p Tomorrow's Labs & Rationales: cbc Discharge Plan Anticipated Discharge (Day): today
[2016-09-21 08:37] LABS: ABSOLUTE BASOPHIL COUNT 0 /CUMM (0.0-0.2); ABSOLUTE EOSINOPHIL COUNT 0.3 /CUMM (0.0-0.7); ABSOLUTE GRANULOCYTE CT 3.9 /CUMM (1.4-6.5); RED BLOOD CELL CT 3.76 /CUMM (4.70-6.10); WHITE BLOOD CELL COUNT 6.6 /CUMM (4.8-10.8)
[2016-09-21 09:34] LABS: ABSOLUTE LYMPH COUNT 1.7 /CUMM (1.2-3.4); ABSOLUTE MONOCYTE COUNT 0.7 /CUMM (0.10-0.60); BASOPHIL % 0.4 % (0.0-2.0); EOSINOPHIL % 4.6 % (0-5); GRANULOCYTE % 58.8 % (42.2-75.2); MEAN CORPUSCULAR HGB 30.5 PG (27.0-31.0); MEAN CORPUSCULAR HGB CONC 33.7 G/DL (33.0-37.0); MEAN CORPUSCULAR VOLUME 90.3 FL (80.0-94.0); MEAN PLATELET VOLUME 7.6 FL (7.4-10.4); PLATELET COUNT 214 /CUMM (130-400); RBC DISTRIBUTION WIDTH 13.7 % (11.5-14.5)
[2016-09-21 09:42] LABS: HEMATOCRIT 33.9 % (42-52)
[2016-09-21] MEDS ORDERED: CLEOCIN HCL300 M1 PO ×4 (10:41→13:36)
--- NOTE | 2016-09-21 13:30 | Patient Discharge Instructions ---
Discharge Instructions General Discharge Information You were seen/treated for: Skin infection Watch for these problems: Fevers, chills Special Instructions: Please take the prescribed antibiotic as directed. Please follow-up with PCP within 1-2 weeks after discharge. Diet Continue normal diet: Yes Activity Full Activity/No Limits: Yes Acute Coronary Syndrome Inclusion Criteria At DC or during hospital stay patient has or had the following: ACS DIAGNOSIS No Discharge Core Measures Meds if any: Prescribed or Continued at Discharge Meds if any: NOT Prescribed or Continued at Discharge Congestive Heart Failure Inclusion Criteria At DC or during hospital stay patient has or had the following: CHF DIAGNOSIS No Discharge Core Measures Meds if any: Prescribed or Continued at Discharge Meds if any: NOT Prescribed or Continued at Discharge Cerebrovascular accident Inclusion Criteria At DC or during hospital stay patient has or had the following: CVA/TIA Diagnosis No Discharge Core Measures Meds if any: Prescribed or Continued at Discharge Meds if any: NOT Prescribed or Continued at Discharge Venous thromboembolism Inclusion Criteria VTE Diagnosis No VTE Type NONE VTE Confirmed by (Test) NONE Discharge Core Measures - Per Current guidelines, there needs to be overlap - treatment for the first 5 days of Warfarin therapy. - If discharged on Warfarin prior to 5 days of - overlap therapy, the patient will need to be - assessed for post discharge needs including - *Post discharge parental anticoagulation - *Warfarin and/or parental anticoagulation education - *Follow up date to check INR post discharge At least 5 days overlap therapy as Inpatient No Meds if any: Prescribed or Continued at Discharge Note: Overlap Therapy is Warfarin and Anticoagulant Meds if any: NOT Prescribed or Continued at Discharge
[2016-09-21 15:15] VITALS: BP 138/70
[2016-09-21 22:38] VITALS: BP 124/64
[2016-09-22 07:45] VITALS: BP 110/69
--- NOTE | 2016-09-22 08:09 | PN- Housestaff ---
See Addendum Subjective Follow-up For: L buttock abscess Subjective: No overnight events. The surgeon came late last night and said no surgery was indicated at this time. However, the patient adamently wants surgery because he is in a lot of pain. He says that in the past, whenever he has an abscess, lancing makes it feel better. He is complaining of 9/10 pain at this point. No fever, chills, or other issues. Review of Systems Constitutional: Reports: no symptoms. EENTM: Reports: no symptoms. Cardiovascular: Reports: no symptoms. Respiratory: Reports: no symptoms. Gastrointestinal: Reports: no symptoms. Genitourinary: Reports: no symptoms. Musculoskeletal: Reports: no symptoms. Skin: Reports: see HPI. Neurological/Psychological: Reports: no symptoms. Hematologic/Endocrine: Reports: no symptoms. Immunologic/Allergic: Reports: no symptoms. Objective Last 24 Hrs of Vital Signs/I&O Vital Signs Date Time Temp Pulse Resp B/P B/P Pulse O2 O2 Flow FiO2 Mean Ox Delivery Rate 09/22 0745 97.4 52 20 110/69 100 CPAP 09/22 0000 BIPAP 09/21 2238 98.9 76 20 124/64 97 Room Air 09/21 1515 98.0 55 20 138/70 98 Room Air Intake & Output 09/22 1600 09/22 0800 09/22 0000 Intake Total 570 960 Output Total Balance 570 960 Intake, IV 450 120 Intake, Oral 120 840 Physical Exam General Appearance: Alert, Oriented X3, Cooperative, No Acute Distress Skin: L buttocks has 1-2cm erythematous area that is hardened with no discharge or pus. Cardiovascular: Regular Rate, Normal S1, Normal S2 Lungs: Clear to Auscultation Abdomen: Normal Bowel Sounds, Soft, No Tenderness Neurological: Normal Gait, Normal Speech, Strength at 5/5 X4 Ext, Normal Tone Extremities: No Edema Current Medications: Current Medications Sig/Vignesh Start time Last Medication Dose Route Stop Time Status Admin Acetaminophen 650 MG Q6P PRN 09/20 0215 AC PO Amitriptyline HCl 100 MG AT BEDTIME 09/20 2200 AC 09/21 PO 2107 Ampicillin Sodium/ 1,500 MG Q6 09/20 0600 AC 09/22 Sulbactam Sodium IV 0606 Sodium Chloride 100 ML Aripiprazole 5 MG DAILY 09/20 1000 AC 09/21 PO 0849 Bupropion HCl 150 MG 1600 09/20 1600 AC 09/21 PO 1601 Bupropion HCl 300 MG QAM 09/20 1000 AC 09/21 PO 0850 Clonazepam 0.5 MG 1300 09/20 1300 AC 09/21 PO 09/27 1259 1206 Clonazepam 1 MG BID 09/20 0212 AC 09/21 PO 09/27 0211 2107 Dicyclomine HCl 10 MG TID 09/20 0213 AC 09/21 PO 2107 Enoxaparin Sodium 40 MG DAILY 09/20 1000 AC 09/21 SC 0848 Fluoxetine HCl 40 MG DAILY 09/20 1000 AC 09/21 PO 0849 Gabapentin 600 MG Q8 09/20 0600 AC 09/22 PO 0606 Hydrochlorothiazide 12.5 MG DAILY 09/20 1000 AC 09/21 PO 0849 Morphine Sulfate 2 MG Q4P PRN 09/20 0215 AC 09/21 IV 1912 Omeprazole 40 MG DAILY AC 09/20 0700 AC 09/22 PO 0606 Oxycodone/ 2 TAB Q6P PRN 09/20 1000 AC 09/22 Acetaminophen PO 0629 Vancomycin HCl 1,500 MG Q12H 09/20 1200 AC 09/22 Sodium Chloride 250 ML IV 0107 Assessment/Plan Assessment: The patient is a 35-year-old male with a past medical history of recurrent right buttock abscesses MRSA positive, pilondial cyst s/p excision, GERD, anxiety, depression, irritable bowel syndrome, sleep apnea, and keratoconus presenting with worsening pain and new drainage purulent drainage of his left buttock abscess despite I+D and antibiotic treatment. #Left buttock abscess: Pelvic CT showed increased swelling but no drainable fluid. Remberto Correa MD the surgeon saw him last night. He explained to the patient that there is no indication for surgery at this time because there is no drainage. Furthermore, surgery may cause spread of bacteria. However the patient is adamant that he would like it to be operated on because he says in the past he has had it lanced it made him feel better. He is also complaining of 89/10 pain. He has been sleeping well. We will talk to him about developing a plan for pain control and follow-up with surgery in 1-2 days. Otherwise he is able to be discharged today. -Continue IV Unasyn and vancomycin. Discharge on clindamycin. -consult surgery, appreciate recommendations -Tylenol 650 mg po q6hrs prn pain scale 1-3, Percocet 2 tab mg po q6hrs prn pain scale 4-6, morphine 2 mg IV [id number] prn pain scale 7-10 -Warm baths #Chronic medical problems: Depression, anxiety, fluid retention, GERD, neuropathic pain, BS -Amitriptyline 100 mg po at bed time -Buproprion 150 + 300 mg po -Aripirazole 5 mg po daily -Fluoxetine 40 mg po daily -Clonazepam 1.0 +0.5 mg by mouth -Hydrochlorothiazide 12.5mg po daily -Omeprazole 40 mg po daily -Gabapentin 600mg po q8 -Dicyclomine 10 mg po TID DVT prophylaxis Lovenox Full code Problem List: 1. Abscess Pain Ratin Pain Location: L buttock Pain Goal: Pain 7 or less Pain Plan: see a/p Tomorrow's Labs & Rationales: none Discharge Plan Anticipated Discharge (Day): today
[2016-09-22] MEDS ORDERED: CELEBREX100 M1 PO (13:03)
[2016-09-22] MEDS ORDERED: CLEOCIN HCL300 M1 PO ×2 (13:03→13:23)
[2016-09-22] MEDS ORDERED: PERCOCET 5-3251 EACH PO ×2 (13:03→13:23)
--- NOTE | 2016-09-22 17:21 | NUR ---
PATIENT DISCHARGED HOME TO SELF CARE. DISCHARGE INSTRUCTION GIVEN TO PATIENT. IV SITE DISCONTINUED . PATIENT LEFT FLOOR VIA WHEEL CHAIR.
== END 2016-09-22 16:10 | DRG 383 ==
LOC: ERH 19:00 → 2NB 09-20 00:47 → ERHI 09-20 00:47 → ENRESERV 09-20 01:02 → 2NB 09-20 01:53 → ENPENDDIS 09-22 14:16 → 2NB 09-22 16:10
PROVIDERS: Internal Medicine; Physician Assistant Medical; Student in an Organized Health Care Education/Training Program; ADMIT Student in an Organized Health Care Education/Training Program
DX: L02.31 Cutaneous abscess of buttock (principal); L03.317 Cellulitis of buttock; F41.8 Other specified anxiety disorders; K21.9 Gastro-esophageal reflux disease without esophagitis; F32.9 Major depressive disorder, single episode, unspecified; G47.33 Obstructive sleep apnea (adult) (pediatric); K58.9 Irritable bowel syndrome, unspecified; Z98.84 Bariatric surgery status; Z86.14 Personal history of Methicillin resistant Staphylococcus aureus infection
CPT/HCPCS: 2NBP; 36415; 82436; 87040; 96372; J0690; J1650; J3370; J7040